=== PATIENT | male | born 1950 | race Caucasian/White ===

== ENCOUNTER 2019-05-16 13:40 | Emergency (ER) | payer MEDICARE, BC, OTHER, SELFPAY ==
--- NOTE | ~2019-05-16 | XR_ITS ---
EXAMINATION: XR chest 2V DATE: 05/16/2019 14:21 INDICATION: Shortness of breath TECHNIQUE: PA and lateral views of the chest are obtained. COMPARISON: 01/19/2019 FINDINGS: The lungs are free of acute opacities. There is no pleural effusion or pneumothorax. Cardio megaly is noted. A dual-lead cardiac pacemaker of the left chest wall ends with leads in expected loc ations. There is mild thoracic spondylosis. IMPRESSION: 1. Cardiomegaly. Reviewed, dictated and finalized at location A. DBOAT DRIVER IMPRESSION: 1. Cardiomegaly.
--- NOTE | 2019-05-16 13:53 | ED.GENADULT ---
HPI - General Adult General Chief complaint: Upper Respiratory Infection Stated complaint: fatigue/chills/fever Time Seen by Provider: 05/16/19 14:04 Source: patient Mode of arrival: ambulatory Limitations: no limitations History of Present Illness HPI narrative: 69-year-old male patient presents to the [facility] with complaints of cold symptoms for the past 5 days. Patient states that he did get a flu shot this year. Patient states he is just been feeling overall tired, drained, fatigue, body aches and has had fevers. Patient states he does have a history of CHF and normally does have shortness of breath but states that his shortness of breath is gotten worse over the past couple of days. Patient denies any cough at this time. Patient states he has been taking [id number] Ashely-Kennedy cold and flu Related Data Home Medications Medication Instructions Recorded Confirmed atorvastatin 05/16/19 carvedilol 05/16/19 clopidogrel 05/16/19 furosemide 05/16/19 insulin aspart U-100 [Novolog 05/16/19 U-100 Insulin aspart] levothyroxine [Synthroid] 05/16/19 metolazone 05/16/19 potassium chloride meq PO 05/16/19 rivaroxaban [Xarelto] mg 05/16/19 sacubitril-valsartan [Entresto] 05/16/19 Allergies Allergy/AdvReac Type Severity Reaction Status Date / Time Penicillins Allergy Unknown Verified 05/16/19 14:00 Sulfa (Sulfonamide Allergy Unknown Verified 05/16/19 14:00 Antibiotics) sulfanilamide Allergy Unknown Verified 05/16/19 14:00 Review of Systems Review of Systems: Narrative: CONSTITUTIONAL: Positive fever, chills, body aches and sweats. EYES: Denies visual changes, redness, or discharge. ENT: Denies rhinorrhea, congestion, sore throat, or otalgia. CARDIOVASCULAR: Denies chest pain, palpitations, or edema. RESPIRATORY: Denies cough positive dyspnea. GASTROINTESTINAL: Denies abdominal pain, nausea, vomiting, or diarrhea. GENITOURINARY: Denies dysuria or hematuria. SKIN: Denies rash or itching. MUSCULOSKELETAL: Denies back pain, joint pain, or myalgia. NEUROLOGIC: Denies headache, numbness, or weakness. PSYCHIATRIC: Denies anxiety or depression. [facility] Past Medical History Medical History (Updated 05/16/19 @ 14:34 by BLAKE Pascual) Atrial fibrillation Barretts esophagus Cancer Basal cell left ear Carpal tunnel syndrome Congestive heart failure Last EF 35% August 2017 Diabetes GERD (gastroesophageal reflux disease) Heart murmur Hypercholesterolemia Hypertension Hypothyroidism Insulin pump in place Kidney stones Legionnaires' disease Musculoskeletal disorder Arthritis, left shoulder torn rotator cuff Myocardial infarction 2019 Obesity Pacemaker Peripheral neuropathy Pneumonia Sleep apnea Surgical History Surgical History (Updated 05/16/19 @ 14:09 by BLAKE Pascual) H/O cardiac catheterization History of appendectomy History of coronary artery stent placement Family History Family History Mother Depression Family history of arthritis Sibling Depression Family history of arthritis Family history of diabetes mellitus in first degree relative Family history of congestive heart failure Family history of heart disease in male family member before age 55 Father Family history of diabetes mellitus in first degree relative Social History Social History Smoking status: Never smoker Alcohol intake: current Comments At the time of my signature I agree with nursing past medical history, surgical, social, and family history. There is no relevant family history pertinent to the presenting complaint. Exam Narrative: Exam Narrative: GENERAL: Well-appearing, well-nourished, and in no acute distress. HEAD: Normocephalic, atraumatic. No tenderness noted to frontal or maxillary sinuses on palpation. EYES: PERRLA and EOMI. ENT: Nares with erythema
[2019-05-16 13:55] VITALS: BP 109/61; PULSE 70; RESP 18; TEMP 37.7; O2SAT 97
[2019-05-16] MEDS: IPRATROPIUM BR 0.02% INH SOLN 0.5 MG/2.5 ML VIAL INHALATION (14:26)
[2019-05-16] MEDS: ALBUTEROL SULFATE NEB 2.5 MG/3 ML INH INHALATION (14:26)
[2019-05-16 14:35] VITALS: PULSE 69; O2SAT 98
[2019-05-16 14:55] VITALS: PULSE 69; RESP 18; O2SAT 98
== END 2019-05-16 14:55 | disposition home or self-care (01) ==
PROVIDERS: Emergency Provider Nurse Practitioner Family
DX: J10.1 Influenza due to other identified influenza virus with other respiratory manifestations (principal); I48.91 Unspecified atrial fibrillation; K22.70 Barrett's esophagus without dysplasia; Z85.828 Personal history of other malignant neoplasm of skin; E11.42 Type 2 diabetes mellitus with diabetic polyneuropathy; I11.0 Hypertensive heart disease with heart failure; I50.9 Heart failure, unspecified; K21.9 Gastro-esophageal reflux disease without esophagitis; R01.1 Cardiac murmur, unspecified; E78.00 Pure hypercholesterolemia, unspecified; A48.1 Legionnaires' disease; I25.2 Old myocardial infarction; Z95.0 Presence of cardiac pacemaker; G47.30 Sleep apnea, unspecified; M19.012 Primary osteoarthritis, left shoulder; Z96.41 Presence of insulin pump (external) (internal); Z95.5 Presence of coronary angioplasty implant and graft; Z79.4 Long term (current) use of insulin; Z79.01 Long term (current) use of anticoagulants
CPT/HCPCS: 71046; 87804; 94640; 99213; G0463

== ENCOUNTER 2019-06-08 10:05 | Outpatient (RCR) | payer SELFPAY | END 2020-01-06 14:25 | disposition home or self-care (01) | LOC: ANHCPRIII 10:05 | PROVIDERS: Visit Provider Internal Medicine Cardiovascular Disease | DX: I25.2 Old myocardial infarction (principal); Z95.5 Presence of coronary angioplasty implant and graft | CPT/HCPCS: 99199 ==

== ENCOUNTER 2020-01-26 10:53 | Outpatient (CLI) | payer MEDICARE, BC, OTHER, SELFPAY ==
--- NOTE | ~2020-01-26 | US_ITS ---
EXAMINATION: US venous doppler [facility] DATE: 01/26/2020 11:45 INDICATION: Left lower limb pain, swelling and palpable lump TECHNIQUE: Grayscale ultrasound images without and with compression and Doppler ultrasound images of the left lower extremity veins were obtained. COMPARISON: None. FINDINGS: The visualized portions of left common femoral vein, profunda (deep) femoral vein, femoral vein, popl iteal vein, peroneal veins, posterior tibial veins, gastrocnemius vein and greater saphenous vein out flow are patent. The patent compressible greater saphenous vein is seen extending across the region o f the palpable abnormality with no other abnormal masses or fluid collections seen at the region of c oncern. IMPRESSION: 1. No deep venous thrombosis in the left lower limb. Reviewed, dictated and finalized at location B.
== END 2020-01-26 10:54 | disposition home or self-care (01) ==
PROVIDERS: Visit Provider Internal Medicine Cardiovascular Disease
DX: M79.605 Pain in left leg (principal)
CPT/HCPCS: 93971

== ENCOUNTER 2020-04-04 11:27 | Emergency (ER) | payer MEDICARE, BC, OTHER, SELFPAY ==
--- NOTE | 2020-04-04 11:37 | ED.SKABFB ---
HPI - Skin/Abscess/Foreign Bdy General Chief complaint: Skin/Abscess/Foreign Body Stated complaint: rash Time Seen by Provider: 04/04/20 11:37 Source: patient and RN notes reviewed History of Present Illness HPI narrative: Patient is a 70-year-old male who presents the urgent care with complaints of rash to the top of the left foot. Patient states that he noticed it approximately a day and a half ago and he has not done anything for the rash. Patient denies of any new creams, detergents, lotions. States that he does have bilateral edema due to CHF however he has noticed that the left foot has been increase in swelling over the last day. Patient denies of any known injury, trauma, fall. Denies of any new or increased shortness of breath. Denies of any chest pain. Patient denies of any history of DVT however does have a history of A. fib and an NE. Patient is currently taking his Plavix as prescribed. Patient also has a history of cellulitis. Denies of any recent fever, chills, nausea, vomiting. No other acute complaints. No acute distress noted. Patient aware of the plan of care. Some parts of this dictation were generated by voice recognition software and may contain typographical and/or grammatical inaccuracies. Related Data Home Medications Medication Instructions Recorded Confirmed atorvastatin 80 mg DAILY 05/16/19 04/04/20 carvedilol 25 mg DAILY 05/16/19 04/04/20 clopidogrel 75 mg DAILY 05/16/19 04/04/20 furosemide 60 mg DAILY 05/16/19 04/04/20 insulin aspart U-100 [Novolog 05/16/19 U-100 Insulin aspart] levothyroxine [Synthroid] 150 mcg DAILY 05/16/19 04/04/20 metolazone 5 mg DAILY 05/16/19 04/04/20 potassium chloride 20 meq PO DAILY 05/16/19 04/04/20 sacubitril-valsartan [Entresto] 49 - 51 tablet DAILY 05/16/19 04/04/20 Allergies Allergy/AdvReac Type Severity Reaction Status Date / Time Penicillins Allergy Unknown Verified 05/16/19 14:00 Sulfa (Sulfonamide Allergy Unknown Verified 05/16/19 14:00 Antibiotics) sulfanilamide Allergy Unknown Verified 05/16/19 14:00 Review of Systems Review of Systems: Narrative: CONSTITUTIONAL: Denies fever, chills, or sweats. EYES: Denies visual changes, redness, or discharge. ENT: Denies rhinorrhea, congestion, sore throat, or otalgia. CARDIOVASCULAR: Denies chest pain, palpitations, or edema. RESPIRATORY: Denies cough or dyspnea. GASTROINTESTINAL: Denies abdominal pain, nausea, vomiting, or diarrhea. GENITOURINARY: Denies dysuria or hematuria. SKIN: Reports of a tender rash to the top of the left foot MUSCULOSKELETAL: Denies back pain, joint pain, or myalgia. NEUROLOGIC: Denies headache, numbness, or weakness. All other systems reviewed are negative, except as documented in HPI. [facility] Past Medical History Medical History (Updated 04/04/20 @ 11:50 by BLAKE Alejo) Atrial fibrillation Barretts esophagus Cancer Basal cell left ear Carpal tunnel syndrome Congestive heart failure Last EF 35% August 2017 Diabetes GERD (gastroesophageal reflux disease) Heart murmur Hypercholesterolemia Hypertension Hypothyroidism Insulin pump in place Kidney stones Legionnaires' disease Musculoskeletal disorder Arthritis, left shoulder torn rotator cuff Myocardial infarction 2019 Obesity Pacemaker Peripheral neuropathy Pneumonia Sleep apnea Surgical History Surgical History (Updated 05/16/19 @ 14:09 by BLAKE Psacual) H/O cardiac catheterization History of appendectomy History of coronary artery stent placement Family History Family History Mother Depression Family history of arthritis Sibling Depression Family history of arthritis Family history of diabetes mellitus in first degree relative Family history of congestive heart failure Family history of heart disease in male family member before age 55 Father Family history of diabetes mellitus in first degree relative Social H
[2020-04-04 11:42] VITALS: BP 132/72; PULSE 70; RESP 20; TEMP 37; O2SAT 99
== END 2020-04-04 11:55 | disposition home or self-care (01) ==
PROVIDERS: Emergency Provider Nurse Practitioner Family
DX: L03.116 Cellulitis of left lower limb (principal); I25.10 Atherosclerotic heart disease of native coronary artery without angina pectoris; G47.30 Sleep apnea, unspecified; I48.91 Unspecified atrial fibrillation; K22.70 Barrett's esophagus without dysplasia; Z85.828 Personal history of other malignant neoplasm of skin; E11.42 Type 2 diabetes mellitus with diabetic polyneuropathy; I11.0 Hypertensive heart disease with heart failure; I50.9 Heart failure, unspecified; K21.9 Gastro-esophageal reflux disease without esophagitis; E78.00 Pure hypercholesterolemia, unspecified; A48.1 Legionnaires' disease; I25.2 Old myocardial infarction; Z95.0 Presence of cardiac pacemaker; E66.9 Obesity, unspecified; Z68.38 Body mass index [BMI] 38.0-38.9, adult; Z96.41 Presence of insulin pump (external) (internal); M19.012 Primary osteoarthritis, left shoulder; Z95.5 Presence of coronary angioplasty implant and graft; Z79.01 Long term (current) use of anticoagulants
CPT/HCPCS: 99213; G0463

== ENCOUNTER 2020-04-23 18:10 | Inpatient (IN) | payer MEDICARE, BC, OTHER, SELFPAY ==
[2020-04-23] VITALS (25 sets, daily range): BP systolic 108–149; BP diastolic 57–97; PULSE 70–73; RESP 15–32; TEMP 37.6–37.7; O2SAT 93–100
--- NOTE | ~2020-04-23 | US_ITS ---
EXAMINATION: US renal BI EXAM DATE: 04/28/2020 10:37 INDICATION: Acute kidney insufficiency. TECHNIQUE: Multiple grayscale and Doppler images of the kidneys were obtained (by a technologist who performed the scan) and subsequently reviewed. Comparison is made to prior examination from 05/27/2016 . FINDINGS: There are small bilateral renal cortical thinning. Right kidney: There is normal contour and echogenicity. It measures 11.5 x 5.6 x 5.6 centimeters. Th ere is a 1.8 cm cyst in the lower pole. Another lower pole exophytic cyst measuring 2.0 cm. There i s no hydronephrosis. Left kidney: There is normal contour and echogenicity. It measures 11.7 x 5.7 x 6.9 centimeters. Th ere are no focal renal lesions identified. There is no hydronephrosis. Bladder unremarkable. IMPRESSION: 1. Mild bilateral renal cortical thinning. 2. Right renal cyst. 3. No hydronephrosis. Reviewed, dictated and finalized at location A. BASE SECURITY EXPERT
--- NOTE | ~2020-04-23 | XR_ITS ---
XR chest 1V portable DATE: 04/28/2020 17:06 INDICATION: Hypoxia. Covid. TECHNIQUE: Portable upright AP chest on 04/28/2020 at 1706 hours COMPARISON: 04/23/2020 portable upright AP chest FINDINGS: Severe patchy bilateral pulmonary consolidating infiltrates are noted throughout both most of each lung, relatively sparing the left apex. Findings are consistent with extensive bilateral pneu monia or less likely pulmonary edema. No pleural effusion is evident. No pneumothorax. Borderline heart size. Left pacemaker device with leads overlying right atrium and right ventricle. [place] device is noted overlying the left humeral head. IMPRESSION: Prominent bilateral patchy consolidating infiltrates, severely increased since 04/23/2020 Reviewed, dictated and finalized at location A. NE OILER IMPRESSION: Prominent bilateral patchy consolidating infiltrates, severely incr eased since 04/23/2020
--- NOTE | ~2020-04-23 | XR_ITS ---
EXAMINATION: XR chest 1V portable EXAM DATE: 04/23/2020 19:19 INDICATION: Shortness of breath, nausea, chills for 5 days. History high blood pressure and diabetes. TECHNIQUE: Portable AP frontal chest x-ray was obtained. Comparison is made to prior examination from 05/16/2019. FINDINGS: There is a dual lead pacemaker/AICD seen with leads projecting over the expected locations of the right atrial appendage and right ventricle. There is mild cardiomegaly. There is pulmonary vas cular congestion. Indistinct reticulation, may indicate some developing groundglass opacity. No confl uent consolidation, pneumothorax or pleural effusion suspected. There are mild bony degenerative gabriele nges. IMPRESSION: Congestive changes. Possible developing infection and/or edema. Reviewed, dictated and finalized at location A. HOLDER
[2020-04-23 18:20] LABS: Glucose Point of Care 224 (65-105)
[2020-04-23 18:42] LABS: Basophils Percent Auto 0.3 % (0.2-1.2); Eosinophils Percent Auto 0.3 % (0-4.4); Hematocrit 33.4 % (42.0-52.0); Immature Granulocyte Absolute 0.02 K/mm3 (0.00-0.031); Immature Granulocyte Percent A 0.6 % (0-0.5); Lymphocytes Absolute Auto 0.36 K/mm3 (0.9-3.2); Lymphocytes Percent Auto 11.1 % (18.3-44.2); Mean Corpuscular HGB Conc 32.9 g/dl (32-36); Mean Corpuscular Hemoglobin 29.7 pg (26-34); Mean Corpuscular Volume 90.3 fl (80-100); Mean Platelet Volume 10.2 fl (7.4-10.4); Monocytes Absolute Auto 0.4 K/mm3 (0.1-0.6); Neutrophils Absolute Auto 2.5 K/mm3 (1.3-6.7); Neutrophils Percent Auto 75.7 % (45.5-73.1); Platelet Count Result 142 k/mm3 (150-375); Red Cell Distribution Width 14.8 % (11.5-14.5); White Blood Count 3.2 K/mm3 (4.5-10.0)
--- NOTE | 2020-04-23 18:50 | ECG_ITS ---
Measurements Intervals [place] Rate: 70 P: [place]: 0 QRS: 6 QRSD: 173 T: 99 QT: 472 QTc: 510 Interpretive Statements ELECTRONIC VENTRICULAR PACEMAKER BASELINE ARTIFACT- I, II, AVR, AVL NO FURTHER INTERPRETATION IS POSSIBLE ATYPICAL ECG Electronically Signed On 04-24-2020 7:11:43 DIRECTOR OF CUSTOMER SERVICE by Tyler Bahena D.O.
[2020-04-23 18:51] LABS: INR 1.3; Prothrombin Time 16.7 Seconds (11.1-14.7)
[2020-04-23 18:52] LABS: Lactic Acid Reflex 2.2 mmol/L (0.7-2.1); Partial Thromboplastin Time 36.9 SECONDS (22.3-36.8)
[2020-04-23 18:56] LABS: Alanine Aminotransferase 22 U/L (4-50); Albumin Level 4.3 g/dL (3.5-5.1); Alkaline Phosphatase 63 U/L (38-126); Anion Gap 11 mmol/L (8-16); Aspartate Amino Transferase 37 U/L (17-59); Bilirubin,Total 0.8 mg/dL (0.2-1.3); Blood Urea Nitrogen 52 mg/dL (9-20); Calcium 8.9 mg/dL (8.4-10.2); Carbon Dioxide 27 mmol/L (22-30); Chloride 98 mmol/L (98-107); Estimated CRCL calculation 36 ml/min; Estimated Glomerular Filt Rate 30; Glucose 238 mg/dL (75-110); Lipase 104 U/L (23-300); Magnesium 1.4 mg/dL (1.6-2.3); Phosphorus 3.4 mg/dL (2.5-4.5); Potassium 3.9 mmol/L (3.4-5.0); Sodium 136 mmol/L (137-145)
[2020-04-23 19:01] LABS: Alveolar/Arterial O2 Gradient 52.3 mmHg; Base Excess ABG -0.7 mEq/l (+/-2.0); Fractional Inspired Oxygen 21 %; HCO3 ABG 22.2 mEq/l (22.0-26.0); Oxygen Content ABG 13.4 %vol (16.0-22.0); Oxygen Saturation ABG 93.2 % (95.0-100.0); Oxyhemoglobin 89.8 % THb (90.0-100.0); PCO2 ABG 30.6 mmHg (35.0-45.0); PO2 ABG 60.8 mmHg (80.0-100.0); Total Hemoglobin 10.6 g/dL (12.0-18.0); pH ABG 7.479 (7.350-7.450)
[2020-04-23 19:02] LABS: Device ROOM AIR; Modified Allen's Test Pass; Site Drawn LEFT RADIAL
--- NOTE | 2020-04-23 19:08 | ED.FEVER ---
HPI - Fever General Chief Complaint: Fever Stated Complaint: Fever, weakness x 5 days Time Seen by Provider: 04/23/20 18:30 Source: patient Limitations: no limitations History of Present Illness HPI Narrative: 70 years old white male presents with fever, generalized weakness and shortness of breath with coughing started 5 days ago. Patient daughter tested positive for COVID-19 few days prior to that day. History of atrial fibrillation, Dela Cruz's esophagitis, congestive heart failure with ejection fraction of 35%, diabetes, hypertension, hyperlipidemia, coronary artery disease and sleep apnea. Related Data Home Medications Medication Instructions Recorded Confirmed atorvastatin 80 mg DAILY 05/16/19 04/04/20 carvedilol 25 mg DAILY 05/16/19 04/04/20 clopidogrel 75 mg DAILY 05/16/19 04/04/20 furosemide 60 mg DAILY 05/16/19 04/04/20 insulin aspart U-100 [Novolog 05/16/19 U-100 Insulin aspart] levothyroxine [Synthroid] 150 mcg DAILY 05/16/19 04/04/20 metolazone 5 mg DAILY 05/16/19 04/04/20 potassium chloride 20 meq PO DAILY 05/16/19 04/04/20 sacubitril-valsartan [Entresto] 49 - 51 tablet DAILY 05/16/19 04/04/20 Allergies Allergy/AdvReac Type Severity Reaction Status Date / Time Penicillins Allergy Unknown Hives Verified 04/23/20 18:21 Sulfa (Sulfonamide Allergy Unknown Hives Verified 04/23/20 18:21 Antibiotics) sulfanilamide Allergy Unknown Hives Verified 04/23/20 18:21 Review of Systems Review of Systems: Narrative: CONSTITUTIONAL: Denies fever, chills, or sweats. EYES: Denies visual changes, redness, or discharge. ENT: Denies rhinorrhea, congestion, sore throat, or otalgia. CARDIOVASCULAR: Denies chest pain, palpitations, or edema. RESPIRATORY: Cough with shortness of breath GASTROINTESTINAL: Denies abdominal pain, nausea, vomiting, or diarrhea. GENITOURINARY: Denies dysuria or hematuria. SKIN: Denies rash or itching. MUSCULOSKELETAL: Denies back pain, joint pain, or myalgia. NEUROLOGIC: Denies headache, numbness, or weakness. PSYCHIATRIC: Denies anxiety or depression. [facility] Past Medical History Medical History Atrial fibrillation Barretts esophagus Cancer Basal cell left ear Carpal tunnel syndrome Congestive heart failure Last EF 35% August 2017 Diabetes GERD (gastroesophageal reflux disease) Heart murmur Hypercholesterolemia Hypertension Hypothyroidism Insulin pump in place Kidney stones Legionnaires' disease Musculoskeletal disorder Arthritis, left shoulder torn rotator cuff Myocardial infarction 2019 Obesity Pacemaker Peripheral neuropathy Pneumonia Sleep apnea Surgical History Surgical History H/O cardiac catheterization History of appendectomy History of coronary artery stent placement Family History Family History Mother Depression Family history of arthritis Sibling Depression Family history of arthritis Family history of diabetes mellitus in first degree relative Family history of congestive heart failure Family history of heart disease in male family member before age 55 Father Family history of diabetes mellitus in first degree relative Social History Social History Smoking status: Never smoker Alcohol intake: current Gender identity (if verbalized by the patient): Male Exam Narrative: Exam Narrative: General appearance: Well-developed, well-nourished, obese Skin: Normal color Head: Normocephalic, nontraumatic Eyes: Clear conjunctiva ENT: Oropharynx normal, ears normal, nose normal Neck: Supple, nontender Chest and respiratory: Airway patent, slight labored breathing, no accessory muscle use, diminution of air entry bilaterally with few rales Heart: Regular rate/rhythm Abdomen: Soft, nontender, no organomegaly, quiet bowel sounds Vascular: Normal kriss
[2020-04-23 21:39] LABS: Reflex Lactic Acid Yes or No Add Lactic
--- NOTE | 2020-04-23 23:10 | PC.NURSE ---
This patient, Addy Fox, was admitted to [facility] Surg Room 330-01. Patient/family oriented to hospital policies and general routines including ID bracelet, bed and alarms, visiting hours, pain management, procedures, bathroom and other care routines, personal items, smoking policy, room service/diet, and visiting hours. Information on how to activate the Rapid Response Team has been discussed. Patient/Family are encouraged to report perceived risks to care and to ask questions if they do not understand what they are told or what they should do.
[2020-04-23] MEDS: SODIUM CHLORIDE 0.9% IV 1,000 ML 100 ML IV CONT (23:43)
[2020-04-24] VITALS (9 sets, daily range): BP systolic 112–119; BP diastolic 50–59; PULSE 67–79; RESP 16–28; TEMP 36.7–37.8; O2SAT 92–99
--- NOTE | 2020-04-24 04:59 | ECG_ITS ---
Measurements Intervals [place] Rate: 70 P: [place]: 0 QRS: -78 QRSD: 185 T: 88 QT: 460 QTc: 497 Interpretive Statements ELECTRONIC VENTRICULAR PACEMAKER BASELINE ARTIFACT- I, II, III, AVF, V1-V2 NO FURTHER INTERPRETATION IS POSSIBLE ATYPICAL ECG Electronically Signed On 04-24-2020 7:14:46 TYPE INSPECTOR by Tyler Bahena D.O.
[2020-04-24 05:31] LABS: Hematocrit 32.7 % (42.0-52.0); Hemoglobin 10.9 g/dL (14.0-18.0); Mean Corpuscular HGB Conc 33.3 g/dl (32-36); Mean Corpuscular Hemoglobin 29.5 pg (26-34); Mean Corpuscular Volume 88.6 fl (80-100); Mean Platelet Volume 10.1 fl (7.4-10.4); Platelet Count Result 131 k/mm3 (150-375); Red Blood Count 3.69 M/mm3 (4.6-6.20)
[2020-04-24 05:44] LABS: Alanine Aminotransferase 21 U/L (4-50)
[2020-04-24 05:45] LABS: Lactic Acid Reflex 1.3 mmol/L (0.7-2.1)
[2020-04-24 05:47] LABS: Anion Gap 9 mmol/L (8-16); Blood Urea Nitrogen 51 mg/dL (9-20); CRP 4.8 mg/dL (<1.0); Calcium 8.6 mg/dL (8.4-10.2); Carbon Dioxide 27 mmol/L (22-30); Chloride 99 mmol/L (98-107); Estimated CRCL calculation 36 ml/min; Estimated Glomerular Filt Rate 30; Glucose 113 mg/dL (75-110); Lactate Dehydrogenase 850 U/L (313-618); Potassium 3.7 mmol/L (3.4-5.0); Sodium 135 mmol/L (137-145)
[2020-04-24 05:58] LABS: Troponin I 0.156 ng/mL (0.000-0.034)
[2020-04-24] MEDS: MAGNESIUM SULF 2 GM/WATER 50ML 2 GM/50 ML BAG IVPB (06:36)
--- NOTE | 2020-04-24 07:13 | PM.IMHP ---
H&P: HPI History of Present Illness Date/Time: 04/24/20 06:00 Chief Complaint: Fever, weakness, shortness of breath, exposed to COVID Narrative: Addy Fox is a 70 year old male with a past medical history of obstructive sleep apnea, CHF, coronary artery disease, diabetes mellitus and chronic kidney disease stage 3 who presented to the ER from home for fever, weakness and shortness of breath. The patient that his daughter tested positive for COVID last week. He has been feeling ill for 5 days. He has been having sharp stabbing headache in the left side of his head that occurs when he coughs. His cough is productive of creamy sputum. Is so sedated with fever with T-max of 101.9?. He has not had any change in his sense of taste or smell. He has had significant decrease in his appetite. He has had some nausea but no vomiting. He denies any chest pain or significant orthopnea. He reports that he has chronic lower extremity swelling. His left lower extremity is always more swollen than his right. His legs have not been painful or erythematous. He has not noticed a change in the swelling. He has been compliant with his Xarelto. He reports that his glucoses are frequently high in the morning depending on what he has eaten. His glucoses are usually around 200 fasting. He sees both primary care and 3rd grade reading teacher through the [place]. Review of Systems Review of Systems: Narrative: 12 systems were reviewed with pertinent positives and negatives per HPI. Except as documented in the HPI, all other systems were reviewed and are negative. [facility] Past Medical History Medical History (Updated 04/24/20 @ 08:05 by Cece Cortes DO) Atrial fibrillation Barretts esophagus Basal cell carcinoma (BCC) of antihelix of left ear Status post resection Cancer Basal cell left ear Chronic kidney disease, stage III (moderate) Congestive heart failure Echocardiogram September 2017: Mild concentric LVH, mild left ventricular enlargement, moderate global left ventricular systolic dysfunction with EF of 35%, akinetic apical segment mid inferior segment and apical inferior segment, dyskinetic apical septum segment and anterior septum segment, severe left atrial enlargement, mild right atrial enlargement, aortic valve stenosis with valve area of 2.1 centimeters squared severity of stenosis may be underestimated due to low cardiac output, moderate pulmonary hypertension with RVSP of 55 Coronary artery disease With chronic troponin elevation Diabetes GERD (gastroesophageal reflux disease) Heart murmur Hypercholesterolemia Hypertension Hypothyroidism Insulin pump in place Ischemic cardiomyopathy Kidney stones Legionnaires' disease Found on lung biopsy Musculoskeletal disorder Arthritis, left shoulder torn rotator cuff Myocardial infarction 2018 Obesity Pacemaker Peripheral neuropathy Sleep apnea CPAP of 9 polysomnogram 2013 Vitamin D deficiency Surgical History Surgical History (Updated 04/24/20 @ 07:50 by Cece Cortes DO) H/O cardiac catheterization December 2013-distal LAD stenosis too small for intervention, tiny small ramus intermedius branch mid to distally occluded, no disease that could be intervened upon Catheterization in August 2017 with 1 drug-eluting stent placed in the proximal LAD. This occurred in [facility] while he was visiting family. History of appendectomy History of bilateral carpal tunnel release History of coronary artery stent placement Status post biventricular pacemaker Due to sick sinus syndrome and atrial fibrillation Family History Family History (Updated 04/24/20 @ 07:50 by Cece Cortes DO) Mother Depression Sibling Depression CHF (congestive heart failure) Acute myocardial infarction Diabetes mellitus, Onset Age: 50 Father Diabetes mellitus Social History Social History (Updated 04/24/20 @ 07:52 by Cece Cortes DO) Social History: He lives at home with his 2 daughters. 1 of
[2020-04-24 08:42] LABS: Troponin I 0.143 ng/mL (0.000-0.034)
[2020-04-24] MEDS: POTASSIUM CHLORIDE 20 MEQ TABLET.ER PO (09:01)
[2020-04-24] MEDS: ATORVASTATIN 40 MG TABLET 80 MG PO (09:01)
[2020-04-24] MEDS: CLOPIDOGREL BISULFATE 75 MG TABLET PO (09:01)
[2020-04-24] MEDS: LEVOTHYROXINE SODIUM 150 MCG TABLET PO (09:01)
[2020-04-24] MEDS: SACUBITRIL/VALSARTAN 49-51 MG TABLET 1 TABLET PO ×2 (09:02→17:08)
[2020-04-24] MEDS: FUROSEMIDE 20 MG TABLET 60 MG PO (09:02)
[2020-04-24] MEDS: LEVALBUTEROL HFA (*SP) 15 GM INHALER 4 PUFF INHALATION ×4 (09:03→21:07)
[2020-04-24 09:54] LABS: Glucose Point of Care 123 (65-105)
[2020-04-24 11:48] LABS: Troponin I 0.161 ng/mL (0.000-0.034)
[2020-04-24 13:32] LABS: Glucose Point of Care 194 (65-105)
--- NOTE | 2020-04-24 14:17 | PM.IMPN ---
Progress Note: A&P Assessment and Plan (1) Elevated troponin: Code(s): R77.8 - Other specified abnormalities of plasma proteins Status: Acute Assessment and Plan: Patient's troponin was elevated on arrival. Could be secondary to possible COVID but due to his cardiac history and systolic CHF, I will consult cardiology for further evaluation and monitoring. Echocardiogram will be ordered He will be continued on telemetry EKGs are hard to interpret due to chronic widened QTC as well as paced rhythm. He denies any chest pain at this time but is having dyspnea with exertion and shortness of breath at rest, but the patient has not been hypoxic. Some concern for an underlying cardiac cause to his dyspnea. Troponins were elevated but flat. Appreciate cardiology's input for further monitoring. Continue monitoring. (2) Pneumonia: Qualifiers: Laterality: bilateral Lung location: unspecified part of lung Pneumonia type: due to unspecified organism Qualified Code(s): J18.9 - Pneumonia, unspecified organism Code(s): J18.9 - Pneumonia, unspecified organism Status: Acute Assessment and Plan: Most likely due to COVID-19 pneumonia. Patient has had close personal exposure to his daughter who lives in the same home with him. He has been started on Decadron due to tachypnea, but we have not recorded any hypoxia episodes yet. Will place on Continuous Pulse Ox for further monitoring. Continue Xopenex inhalers. Continue IS and Cornet Continue Tylenol as needed for fevers and muscle aches and pains. No antibiotics started at this time for pneumonia due to high suspicion of COVID-19. COVID test is still pending at this time. Continue monitoring. Patient is on isolation. Monitor respiratory status. (3) Close exposure to COVID-19 virus: Code(s): Z20.822 - Contact with and (suspected) exposure to COVID-19 Status: Acute (4) Chronic kidney disease, stage III (moderate): Qualifiers: Chronic kidney disease stage 3 subtype: stage 3b (GFR 30-44) Qualified Code(s): N18.32 - Chronic kidney disease, stage 3b Code(s): N18.30 - Chronic kidney disease, stage 3 unspecified Status: Acute Assessment and Plan: The patient has chronic kidney disease. The last labs we have available were from 2018. His creatinine is slightly above value from 2018 but this is likely progression of his chronic kidney disease and not acute change. Creatinine is 2.2. Stable. Continue monitoring. (5) Type 2 diabetes mellitus with hyperglycemia: Qualifiers: Diabetes mellitus meterman insulin use: with meterman use Qualified Code(s): E11.65 - Type 2 diabetes mellitus with hyperglycemia; Z79.4 - shelter (current) use of insulin Code(s): E11.65 - Type 2 diabetes mellitus with hyperglycemia Status: Acute Assessment and Plan: The patient has chronically uncontrolled diabetes. He has insulin pump in place. He has not [facility] He reports that his fasting glucoses are often in the 200s. He has complications including diabetic retinopathy, nephropathy and neuropathy. His glucose this morning was 113 but it is likely due to his decreased oral intake. The patient has signed an insulin pump agreement and is proficient in managing his pump. Will continue the patient's insulin pump which runs at 3 units between midnight and 5:30 a.m. 4 units between 5:30 a.m. and 10:00 p.m. and 4.25 units between 10:00 p.m. and midnight. He uses 1 unit of insulin for every 2 carbs in his insulin to carb ratio. He takes 1 unit for every 10 mg/dL of glucose over 150 Check HgbA1c. Continue monitoring ACHS. Hypoglycemic protocol in place. Make adjustements if necessary. SSI.
--- NOTE | 2020-04-24 14:37 | ECG_ITS ---
Measurements Intervals [place] Rate: 70 P: NV: 0 QRS: -83 QRSD: 176 T: 93 QT: 455 QTc: 492 Interpretive Statements ELECTRONIC VENTRICULAR PACEMAKER NO FURTHER INTERPRETATION IS POSSIBLE ATYPICAL ECG Electronically Signed On 04-24-2020 16:29:44 [employer] by Tyler Bahena D.O.
[2020-04-24] MEDS: DEXAMETHASONE 2 MG TABLET 6 MG PO (15:11)
[2020-04-24] MEDS: RIVAROXABAN 15 MG TABLET PO (17:08)
[2020-04-24 18:27] LABS: SARS-CoV-2 RNA PCR Positive
[2020-04-24 21:00] LABS: Glucose Point of Care 135 (65-105)
[2020-04-24] MEDS: carvediloL 12.5 MG TABLET PO (21:06)
[2020-04-24] MEDS: SALINE 0.65% NAS SOLN 44 ML BTL 1 SPRAY NASAL (21:08)
[2020-04-24 21:30] LABS: Glucose Point of Care 160 (65-105)
--- NOTE | 2020-04-24 21:49 | PHAR ---
HOME MED VERIFIED = TRULICITY1.5MG/0.5ML PREFILLED SYRINGE. NO RX LABEL SO NO PRESCRIBING INFORMATION TO CHECK AGAINST.
[2020-04-25] VITALS (8 sets, daily range): BP systolic 101–116; BP diastolic 50–68; PULSE 70–92; RESP 20–24; TEMP 36.2–36.8; O2SAT 92–100
--- NOTE | 2020-04-25 | ECHO_ITS ---
Patient Info Name: Addy Fox Age: 70 years : 1950 Gender: Male Ht: 68 in Wt: 255 lbs BSA: 2.41 m2 HR: 70 bpm BP: 116 / 68 mmHg Technical Quality: Good Exam Date: 04/25/2020 9:55 AM Exam Location: [facility] Patient Status: Inpatient Admit Date: 04/23/2020 Staff Ordering Physician: Deborah Zuleta PA-C City Manager: Carlos Muniz RDCS, RT Attending Provider: Len Jolly PA-C Referring Physician: Merlyn COVINGTON; Exam Type: CA echo doppler color flow Study Info Indications R06.00 - Dyspnea, unspecified Complete two-dimensional, color flow and Doppler transthoracic echocardiogram is performed. Summary 1. Complete two-dimensional, color flow and Doppler transthoracic echocardiogram is performed. 2. Suboptimal image quality. Mild LVH, mild LV enlargement. Severe global LV systolic dysfunction with segmental wall motion abnormality. All myocardial segments are not well-visualized. Anteroseptum appears akinetic. Ejection fraction visually estimated at about 25-30%. Grade 3/4 diastolic dysfunction with elevated left heart pressures. Mild left enlargement. Pacemaker/ICD leads in the RA/RV. Mild MAC, [id number] MR. Aortic valve appears calcific and with restricted leaflet mobility, partly due to poor LV systolic function; V max 1.8 m/sec, mean gradient 7 mmHg, aortic valve area 1.1 cm2. Mild tricuspid regurgitation, mild pulmonary hypertension, RVSP 44 mmHg. Left Ventricle Left ventricular chamber dimension is mildly enlarged. Left ventricular systolic function is severely reduced, estimated at 25-30%. There is mildly increased left ventricular wall thickness. The left ventricular diastolic function is grade III diastolic dysfunction. E/e' 16.8 is abnormal. Right Ventricle Right ventricular chamber dimension is not well visualized. Left Atria Left atrial chamber dimension is mildly enlarged. Right Atria Right atrial chamber dimension is not well visualized. Aortic Valve There is moderate aortic valve stenosis with a peak velocity of 180 cm/s, mean gradient of 7 mmHg, and aortic valve area of 1.1 cm2. There is mild aortic valve calcification. Pulmonic Valve The pulmonic valve is normal. Mitral Valve There is mild to moderate mitral valve regurgitation. The mitral valve annulus is mildly calcified. Tricuspid Valve The tricuspid valve leaflets are normal. There is mild tricuspid valve regurgitation. Mild pulmonary hypertension, estimated pulmonary arterial systolic pressure is 44 mmHg. Pericardium/Pleural The pericardium appears normal. Aorta The aortic root size at the sinus of Valsalva is normal. Left Ventricular Outflow Tract Name Value Normal LVOT 2D LVOT Diameter 2.0 cm LVOT Doppler LVOT Peak Gradient 2 mmHg LVOT Mean Gradient 1 mmHg LVOT VTI 13 cm LVOT VTI/AV VTI Ratio 0.3 LVOT Stroke Volume 41 ml LVOT CO 2.9 l/min LVOT CI 1.2 l/min/m2 Mitr
[2020-04-25] MEDS: LEVOTHYROXINE SODIUM 150 MCG TABLET PO (05:50)
[2020-04-25 06:07] LABS: Hematocrit 27.5 % (42.0-52.0); Hemoglobin 9.2 g/dL (14.0-18.0); Mean Corpuscular HGB Conc 33.5 g/dl (32-36); Mean Corpuscular Hemoglobin 29.8 pg (26-34); Mean Platelet Volume 10.2 fl (7.4-10.4); Platelet Count Result 105 k/mm3 (150-375); Red Blood Count 3.09 M/mm3 (4.6-6.20); Red Cell Distribution Width 15.2 % (11.5-14.5); White Blood Count 2.8 K/mm3 (4.5-10.0)
[2020-04-25 06:20] LABS: Hemoglobin A1C 8.6 % (<5.7)
[2020-04-25 06:33] LABS: Alanine Aminotransferase 21 U/L (4-50); Albumin Level 3.5 g/dL (3.5-5.1); Alkaline Phosphatase 48 U/L (38-126); Anion Gap 11 mmol/L (8-16); Aspartate Amino Transferase 47 U/L (17-59); Bilirubin,Total 0.8 mg/dL (0.2-1.3); Blood Urea Nitrogen 66 mg/dL (9-20); CRP 6.6 mg/dL (<1.0); Calcium 7.8 mg/dL (8.4-10.2); Carbon Dioxide 24 mmol/L (22-30); Chloride 97 mmol/L (98-107); Estimated CRCL calculation 34 ml/min; Estimated Glomerular Filt Rate 28; Glucose 231 mg/dL (75-110); Lactate Dehydrogenase 1034 U/L (313-618); Magnesium 1.8 mg/dL (1.6-2.3); Potassium 4.1 mmol/L (3.4-5.0); Sodium 132 mmol/L (137-145)
[2020-04-25] MEDS: DEXAMETHASONE 2 MG TABLET 6 MG PO (08:18)
[2020-04-25] MEDS: SACUBITRIL/VALSARTAN 49-51 MG TABLET 1 TABLET PO ×2 (08:19→16:28)
[2020-04-25] MEDS: FUROSEMIDE 20 MG TABLET 60 MG PO (08:20)
[2020-04-25] MEDS: CLOPIDOGREL BISULFATE 75 MG TABLET PO (08:20)
[2020-04-25] MEDS: ATORVASTATIN 40 MG TABLET 80 MG PO (08:20)
[2020-04-25] MEDS: POTASSIUM CHLORIDE 20 MEQ TABLET.ER PO (08:21)
[2020-04-25] MEDS: LEVALBUTEROL HFA (*SP) 15 GM INHALER 4 PUFF INHALATION ×4 (08:21→20:37)
[2020-04-25 08:42] LABS: Glucose Point of Care 269 (65-105)
--- NOTE | 2020-04-25 11:22 | PM.CNCAR ---
Assessment and Plan Assessment and plan (1) Elevated troponin: Code(s): R77.8 - Other specified abnormalities of plasma proteins Status: Acute Assessment and Plan: 70-year-old male with coronary artery disease; history of ID status post PCI/stenting of LAD at outside hospital; ischemic cardiomyopathy/CHF with reduced ejection fraction, atrial fibrillation on chronic anticoagulation with lower dose rivaroxaban, CKD. Patient admitted with fever, dyspnea and and weakness. Found to have COVID-19 infection. Patient has minimal troponin elevation which is essentially flat, and is non ACS related in the setting of congestive heart failure, CKD and infection. Supportive care, continue current medical treatment for patient's CAD including Antiplatelets and statin. (2) Congestive heart failure: Code(s): I50.9 - Heart failure, unspecified Status: Acute Assessment and Plan: Continue home medications with carvedilol, sacubitril /valsartan. Diuresis with furosemide. Monitor renal function and electrolytes closely. Monitor volume status. Echocardiogram with Doppler is pending. (3) COVID-19: Code(s): U07.1 - COVID-19 Status: Acute Assessment and Plan: Management as per primary team. History of Present Illness History of Present Illness Consult date/time: 04/25/20 11:22 Date of consult: 04/25/2020 Reason for consult: Elevated troponin Requesting physician:CHANEL Zuleta Chief complaint: Shortness of breath HPI: 70-year-old male with coronary artery disease; history of ID status post PCI/stenting of LAD at outside hospital; ischemic cardiomyopathy/CHF with reduced ejection fraction, atrial fibrillation on chronic anticoagulation with lower dose rivaroxaban, CKD Patient was admitted to [facility] on 04/23/2020 with complaints of fever, weakness and shortness of breath. He was apparently exposed to COVID from a family member and his COVID PCR is positive during this hospitalization. Patient is making managed for COVID-19 infection. He is on supplemental oxygen, and has received steroids. He denies chest pain. Reports generalized weakness, and shortness of breath with mild exertion. EKG on presentation on my personal evaluation showed ventricular paced rhythm. Follow-up EKG without change. Chest x-ray shows cardiomegaly, pulmonary vascular congestion. ABG showed hypoxemia with O2 level 60. Patient's troponins are minimally elevated and are essentially flat. Reason For Visit: Covid exposure, viral pneumonia, CRYS, hypoxia Review of Systems Review of Systems: Narrative: General: Generalized fatigue Psychological: Negative for anxiety, depression Ophthalmic: negative for loss of vision ENT: Negative for epistaxis, headaches Allergy and immunology: Negative for hives, nasal congestion Hematologic and lymphatic: Negative for overt bleeding problems Endocrine: Negative for hot flashes, palpitations Respiratory: Negative for cough, hemoptysis Cardiovascular: Negative for chest pain, was for shortness of breath Gastrointestinal: Negative for abdominal pain, nausea, vomiting, hematochezia Musculoskeletal: Negative for myalgia, joint pains Neurological: Negative for weakness Dermatological: Negative for rash, skin discoloration PMFSH Past Medical History Medical History Atrial fibrillation Barretts esophagus Basal cell carcinoma (BCC) of antihelix of left ear Status post resection Cancer Basal cell left ear Chronic kidney disease, stage III (moderate) Congestive heart failure Echocardiogram September 2017: Mild concentric LVH, mild left ventricular enlargement, moderate global left ventricular systolic dysfunction with EF of 35%, akinetic apical segment mid inferior segment and apical inferior segment, dyskinetic apical septum segment and anterior septum segment, severe left atrial enlargement, mild right atrial enla
[2020-04-25 12:06] LABS: Glucose Point of Care 233 (65-105)
--- NOTE | 2020-04-25 16:10 | PM.IMPN ---
Progress Note: A&P Assessment and Plan (1) COVID-19: Code(s): U07.1 - COVID-19 Status: Acute Assessment and Plan: With questionable diagnosis of PNA on CXR and questionable acute respiratory failure with hypoxia as it has not been documented that patient has been hypoxic on RA. He has been started on Dexamethasone from ED. He is not a candidate of Remdesivir given his poor renal function. Bacterial pneumonia coinfection felt to be less likely at this time. Continue Decadron day #2 Continue supportive care with Tylenol for fevers, Robitussin for cough, and levalbuterol for SOB Wean O2 as tolerated Will do home O2 eval in 1-2 days pending clinical course Continue IS/Cornet Monitor closely (2) Elevated troponin: Code(s): R77.8 - Other specified abnormalities of plasma proteins Status: Acute Assessment and Plan: Troponins mildly elevated but relatively flat. Possibly secondary to COVID disease vs systolic CVF vs poor renal function or combination thereof. Patient denies chest pain/palpitations. Dr. Lawson (Cardiology) consulted and appreciate recommendations. Echo shows EF of 25-30%. Continue conservative medical management at this time per CArdiology recommendations Await further recommendations from Cardiology Continue telemetry for now Monitor (3) Congestive heart failure: Code(s): I50.9 - Heart failure, unspecified Status: Acute Assessment and Plan: Chronic systolic CHF. Echo shows EF of 25-30% with grade 3/4 diastolic dysfunction. CArdiology following and appreciate input Will defer further care to Cardiology service Monitor volume status (4) Chronic kidney disease, stage III (moderate): Qualifiers: Chronic kidney disease stage 3 subtype: stage 3b (GFR 30-44) Qualified Code(s): N18.32 - Chronic kidney disease, stage 3b Code(s): N18.30 - Chronic kidney disease, stage 3 unspecified Status: Acute Assessment and Plan: Cr appears slightly more elevated compared to 2018, but likely due to worsening disease. Cr 2.30 today; stable. Monitor daily (5) Type 2 diabetes mellitus with hyperglycemia: Qualifiers: Diabetes mellitus shelter insulin use: with shelter use Qualified Code(s): E11.65 - Type 2 diabetes mellitus with hyperglycemia; Z79.4 - oysterman (current) use of insulin Code(s): E11.65 - Type 2 diabetes mellitus with hyperglycemia Status: Acute Assessment and Plan: The patient has chronically uncontrolled diabetes. He has insulin pump in place. A1c 8.6 this stay. He has complications including diabetic retinopathy, nephropathy and neuropathy. BGL 200s today. Continue insulin pump; 3 units between midnight and 5:30 a.m. 4 units between 5:30 a.m. and 10:00 p.m. and 4.25 units between 10:00 p.m. and midnight. He uses 1 unit of insulin for every 2 carbs in his insulin to carb ratio. He takes 1 unit for every 10 mg/dL of glucose over 150 Accuchecks ACHS, hypoglycemia protocol, diabetic/HH diet Trulicity has been held as this is NF (6) Sleep apnea: Qualifiers: Sleep apnea type: obstructive Qualified Code(s): G47.33 - Obstructive sleep apnea (adult) (pediatric) Code(s): G47.30 - Sleep apnea, unspecified Status: Acute Assessment and Plan: It is felt that patient would benefit from his home CPAP, given that he is COVID+. Continue CPAP Monitor (7) Hypertension: Code(s): I10 - Essential (primary) hypertension Status: Acute Assessment and Plan: BP a bit soft with BP 100s sys most recently Continue home medications Subjective Date/time s
[2020-04-25] MEDS: RIVAROXABAN 15 MG TABLET PO (16:27)
[2020-04-25 16:46] LABS: Glucose Point of Care 146 (65-105)
[2020-04-25] MEDS: carvediloL 12.5 MG TABLET PO (20:33)
[2020-04-25] MEDS: SODIUM CHLORIDE NASAL GEL 14.1 GM 1 APPLIC NASAL (20:37)
[2020-04-25 21:30] LABS: Glucose Point of Care 124 (65-105)
[2020-04-26] VITALS (12 sets, daily range): BP systolic 86–121; BP diastolic 44–65; PULSE 70; RESP 19–20; TEMP 36.4–38.1; O2SAT 85–99
[2020-04-26] MEDS: LEVOTHYROXINE SODIUM 150 MCG TABLET PO (05:41)
[2020-04-26 06:14] LABS: Hematocrit 27.3 % (42.0-52.0); Hemoglobin 9.4 g/dL (14.0-18.0); Immature Granulocyte Absolute 0.02 K/mm3 (0.00-0.031); Immature Granulocyte Percent A 0.4 % (0-0.5); Lymphocytes Absolute Auto 0.29 K/mm3 (0.9-3.2); Lymphocytes Percent Auto 5.9 % (18.3-44.2); Mean Corpuscular HGB Conc 34.4 g/dl (32-36); Mean Corpuscular Hemoglobin 29.3 pg (26-34); Mean Platelet Volume 10.2 fl (7.4-10.4); Monocytes Absolute Auto 0.4 K/mm3 (0.1-0.6); Monocytes Percent Auto 7.2 % (2.6-8.5); Neutrophils Absolute Auto 4.2 K/mm3 (1.3-6.7); Neutrophils Percent Auto 86.5 % (45.5-73.1); Platelet Count Result 139 k/mm3 (150-375); Red Blood Count 3.21 M/mm3 (4.6-6.20); Red Cell Distribution Width 14.7 % (11.5-14.5); White Blood Count 4.9 K/mm3 (4.5-10.0)
[2020-04-26 07:06] LABS: Alanine Aminotransferase 26 U/L (4-50); Albumin Level 3.5 g/dL (3.5-5.1); Alkaline Phosphatase 45 U/L (38-126); Anion Gap 10 mmol/L (8-16); Aspartate Amino Transferase 72 U/L (17-59); Bilirubin,Total 0.6 mg/dL (0.2-1.3); Blood Urea Nitrogen 89 mg/dL (9-20); CRP 5.1 mg/dL (<1.0); Calcium 7.7 mg/dL (8.4-10.2); Carbon Dioxide 24 mmol/L (22-30); Chloride 96 mmol/L (98-107); Estimated CRCL calculation 32 ml/min; Estimated Glomerular Filt Rate 26; Glucose 77 mg/dL (75-110); Magnesium 1.9 mg/dL (1.6-2.3); Potassium 3.8 mmol/L (3.4-5.0); Sodium 130 mmol/L (137-145)
[2020-04-26 08:15] LABS: Lactate Dehydrogenase 1397 U/L (313-618)
[2020-04-26 08:26] LABS: Glucose Point of Care 92 (65-105)
[2020-04-26] MEDS: POTASSIUM CHLORIDE 20 MEQ TABLET.ER PO (08:43)
[2020-04-26] MEDS: DEXAMETHASONE 2 MG TABLET 6 MG PO (08:43)
[2020-04-26] MEDS: ATORVASTATIN 40 MG TABLET 80 MG PO (08:43)
[2020-04-26] MEDS: CLOPIDOGREL BISULFATE 75 MG TABLET PO (08:43)
[2020-04-26] MEDS: LEVALBUTEROL HFA (*SP) 15 GM INHALER 4 PUFF INHALATION ×4 (08:44→20:43)
[2020-04-26] MEDS: SALINE 0.65% NAS SOLN 44 ML BTL 1 SPRAY NASAL (09:01)
[2020-04-26] MEDS: FUROSEMIDE 20 MG TABLET 60 MG PO (10:57)
[2020-04-26] MEDS: SACUBITRIL/VALSARTAN 49-51 MG TABLET 1 TABLET PO ×2 (10:58→18:22)
[2020-04-26] MEDS: ONDANSETRON HCL ODT 4 MG TABLET PO (10:59)
--- NOTE | 2020-04-26 11:27 | PM.PNCARD ---
Progress Note: A&P Assessment and Plan (1) Elevated troponin: Code(s): R77.8 - Other specified abnormalities of plasma proteins Status: Acute Assessment and Plan: 70-year-old male with coronary artery disease; history of [place] status post PCI/stenting of LAD at outside hospital; ischemic cardiomyopathy/CHF with reduced ejection fraction, atrial fibrillation on chronic anticoagulation with lower dose rivaroxaban, CKD. Patient admitted with fever, dyspnea and and weakness. Found to have COVID-19 infection. Patient has minimal troponin elevation which is essentially flat, and is non ACS related in the setting of congestive heart failure, CKD and infection. Supportive care, continue current medical treatment for patient's CAD including Antiplatelets and statin. (2) Congestive heart failure: Code(s): I50.9 - Heart failure, unspecified Status: Acute Assessment and Plan: Continue home medications with carvedilol, sacubitril /valsartan. Diuresis with furosemide. Monitor renal function and electrolytes closely. Monitor volume status. Decrease carvedilol to 6.25 mg q.h.s.. (3) COVID-19: Code(s): U07.1 - COVID-19 Status: Acute Assessment and Plan: Management as per primary team. Subjective Date/time seen: 04/26/20 11:27 Interval history: Patient is a 70 year old male with a past medical history of obstructive sleep apnea, CHF, coronary artery disease, diabetes mellitus and chronic kidney disease stage 3 who is seen in follow up for COVID pneumonia and elevated troponins. Date of service 04/26/2020: No chest pain. Does have some shortness of breath and some nausea Review of Systems Constitutional: Constitutional: Reports weakness Eyes: Eyes: Denies blurry vision ENT: Reports Normal hearing present Cardiovascular: Cardiovascular: Denies chest pain and Reports leg edema Respiratory: Respiratory: Reports dyspnea Gastrointestinal: Gastrointestinal: Denies abdominal pain Musculoskeletal: Musculoskeletal: Denies neck pain Integumentary/Breasts: Skin/Breast: Denies dry skin Neurologic: Denies headache(s) Psychiatric: Psychiatric: Denies anxiety Endocrine: Endocrine: Denies excessive sweating Hematologic/Lymphatic: Hematologic/Lymphatic: Denies easy bleeding Allergic/Immunologic: Allergic/Immunologic: Denies GI upset with certain foods Exam Narrative: Exam Narrative: Awake alert. Appears in mild respiratory distress Const: General: in distress HENMT: General nose exam: no epistaxis Eyes: Sclera: sclerae normal Neck: Neck: no JVD Resp: Auscultation: diminished lung sounds Cardio: Rate: regular rate Other: V paced rhythm GI: GI Palp: Yes Soft to palpation Skin: General skin exam: normal color Neuro: Cognition (Neuro): normal cognition Speech: normal speech Extrem: General: edema Psych: Affect: normal affect Objective Data Vital Signs Vital Signs: Vital Signs - 24 hr 04/25/20 12:00 04/25/20 16:00 04/25/20 20:00 Temperature 36.2 C L 36.8 C 36.3 C L Pulse Rate 92 70 71 Respiratory Rate 20 20 20 Blood Pressure 101/63 103/55 L 102/50 L Pulse Oximetry 98 92 100 04/25/20 20:33 04/25/20 23:53 04/26/20 00:00 Temperature 36.9 C Pulse Rate 84 70 Respiratory Rate 22 H 20 Blood Pressure 119/65 Pulse Oximetry 99 04/26/20 04:00 04/26/20 08:00 04/26/20 10:25 Temperature 36.4 C 38.1 C H Pulse Rate 70 70 Respiratory Rate 20 20 Blood Pressure 121/64 91/50 L 96/60 L Pulse Oximetry 90 99 Intake/Output Intake/Output: Intake & Output 04/23/20 04/24/20 04/25/20 04/26/20 23:59 23:59 23:59 23:59 Intake Total 2670 2170 740 Output Total 600 2000 Balance 2070 170 740 Meds/Results Medications: Active Medications Generic Name Dose Route Start Last Admin Trade Name Juanq PRN Reason Stop Dose Admin Acetaminophen 650 mg 04/24/20 15:11 Acetaminophen 325 Mg Tablet PO Q4H PRN Mild Pain
--- NOTE | 2020-04-26 11:33 | PCOTNOTE ---
Attempted to see patient this am, however patient declined at this time stating, Not right now. Patient back in bed, sleeping upon entering stated, I have no energy.
[2020-04-26 12:16] LABS: Glucose Point of Care 135 (65-105)
--- NOTE | 2020-04-26 12:31 | PCOTNOTE ---
Attempted to see patient this pm, however RN advised not to see due to medical status.
--- NOTE | 2020-04-26 14:26 | PM.IMPN ---
Progress Note: A&P Assessment and Plan (1) COVID-19: Code(s): U07.1 - COVID-19 Status: Acute Assessment and Plan: With questionable diagnosis of PNA on CXR and questionable acute respiratory failure with hypoxia as it has not been documented that patient has been hypoxic on RA. He has been started on Dexamethasone from ED. He is not a candidate of Remdesivir given his poor renal function. Bacterial pneumonia coinfection felt to be less likely at this time. Continue Decadron day #3 Continue supportive care with Tylenol for fevers, Robitussin for cough, and levalbuterol for SOB Wean O2 as tolerated Will do home O2 eval in 1-2 days pending clinical course Continue IS/Cornet Monitor closely (2) Elevated troponin: Code(s): R77.8 - Other specified abnormalities of plasma proteins Status: Acute Assessment and Plan: Troponins mildly elevated but relatively flat. Possibly secondary to COVID disease vs systolic CHF vs poor renal function or combination thereof. Patient denies chest pain/palpitations. Dr. Lawson (Cardiology) consulted and appreciate recommendations. Echo shows EF of 25-30%. Continue conservative medical management at this time per Cardiology recommendations Await further recommendations from Cardiology Monitor (3) Congestive heart failure: Code(s): I50.9 - Heart failure, unspecified Status: Acute Assessment and Plan: Chronic systolic CHF. Echo shows EF of 25-30% with grade 3/4 diastolic dysfunction. Cardiology following and appreciate input Will defer further care to Cardiology service Monitor volume status (4) Chronic kidney disease, stage III (moderate): Qualifiers: Chronic kidney disease stage 3 subtype: stage 3b (GFR 30-44) Qualified Code(s): N18.32 - Chronic kidney disease, stage 3b Code(s): N18.30 - Chronic kidney disease, stage 3 unspecified Status: Acute Assessment and Plan: Cr appears slightly more elevated compared to 2018, but likely due to worsening disease. Cr 2.50 today; relatively stable but somewhat elevated since arrival Monitor daily (5) Type 2 diabetes mellitus with hyperglycemia: Qualifiers: Diabetes mellitus manager terminal insulin use: with longterm use Qualified Code(s): E11.65 - Type 2 diabetes mellitus with hyperglycemia; Z79.4 - local company intermodal truck driver (current) use of insulin Code(s): E11.65 - Type 2 diabetes mellitus with hyperglycemia Status: Acute Assessment and Plan: The patient has chronically uncontrolled diabetes. He has insulin pump in place. A1c 8.6 this stay. He has complications including diabetic retinopathy, nephropathy and neuropathy. BGL 70s-130s today. Continue insulin pump; 3 units between midnight and 5:30 a.m. 4 units between 5:30 a.m. and 10:00 p.m. and 4.25 units between 10:00 p.m. and midnight. He uses 1 unit of insulin for every 2 carbs in his insulin to carb ratio. He takes 1 unit for every 10 mg/dL of glucose over 150 Accuchecks ACHS, hypoglycemia protocol, diabetic/HH diet Trulicity has been held as this is NF (6) Sleep apnea: Qualifiers: Sleep apnea type: obstructive Qualified Code(s): G47.33 - Obstructive sleep apnea (adult) (pediatric) Code(s): G47.30 - Sleep apnea, unspecified Status: Acute Assessment and Plan: It is felt that patient would benefit from his home CPAP, given that he is COVID+. Continue CPAP Monitor (7) Hypertension: Code(s): I10 - Essential (primary) hypertension Status: Acute Assessment and Plan: BP soft with BP 80-90s sys most recently. Patient asymptomatic Continue home medications per Cardiology recommendations Carv
[2020-04-26] MEDS: RIVAROXABAN 15 MG TABLET PO (17:01)
[2020-04-26 18:23] LABS: Glucose Point of Care 362 (65-105)
[2020-04-26] MEDS: ACETAMINOPHEN 325 MG TABLET 650 MG PO (18:24)
[2020-04-26] MEDS: SODIUM CHLORIDE NASAL GEL 14.1 GM 1 APPLIC NASAL (22:47)
[2020-04-27] VITALS (7 sets, daily range): BP systolic 92–138; BP diastolic 50–92; PULSE 63–82; RESP 18–21; TEMP 36.4–36.8; O2SAT 90–100
[2020-04-27 06:18] LABS: Hematocrit 26.4 % (42.0-52.0); Hemoglobin 9.1 g/dL (14.0-18.0); Immature Granulocyte Absolute 0.02 K/mm3 (0.00-0.031); Immature Granulocyte Percent A 0.5 % (0-0.5); Lymphocytes Absolute Auto 0.32 K/mm3 (0.9-3.2); Lymphocytes Percent Auto 7.9 % (18.3-44.2); Mean Corpuscular HGB Conc 34.5 g/dl (32-36); Mean Corpuscular Hemoglobin 29.5 pg (26-34); Mean Corpuscular Volume 85.7 fl (80-100); Mean Platelet Volume 10.2 fl (7.4-10.4); Monocytes Absolute Auto 0.4 K/mm3 (0.1-0.6); Monocytes Percent Auto 8.8 % (2.6-8.5); Neutrophils Absolute Auto 3.4 K/mm3 (1.3-6.7); Neutrophils Percent Auto 82.8 % (45.5-73.1); Platelet Count Result 134 k/mm3 (150-375); Red Blood Count 3.08 M/mm3 (4.6-6.20); Red Cell Distribution Width 15.2 % (11.5-14.5); White Blood Count 4.1 K/mm3 (4.5-10.0)
[2020-04-27 06:36] LABS: Alanine Aminotransferase 38 U/L (4-50); Albumin Level 3.4 g/dL (3.5-5.1); Alkaline Phosphatase 45 U/L (38-126); Anion Gap 10 mmol/L (8-16); Aspartate Amino Transferase 83 U/L (17-59); Bilirubin,Total 0.6 mg/dL (0.2-1.3); Blood Urea Nitrogen 116 mg/dL (9-20); Calcium 7.3 mg/dL (8.4-10.2); Carbon Dioxide 21 mmol/L (22-30); Chloride 97 mmol/L (98-107); Estimated CRCL calculation 23 ml/min; Estimated Glomerular Filt Rate 17; Glucose 196 mg/dL (75-110); Magnesium 2.2 mg/dL (1.6-2.3); Potassium 4.5 mmol/L (3.4-5.0); Sodium 128 mmol/L (137-145)
[2020-04-27] MEDS: LEVOTHYROXINE SODIUM 150 MCG TABLET PO (06:38)
[2020-04-27] MEDS: LEVALBUTEROL HFA (*SP) 15 GM INHALER 4 PUFF INHALATION ×4 (08:47→20:26)
[2020-04-27] MEDS: SACUBITRIL/VALSARTAN 49-51 MG TABLET 1 TABLET PO (08:48)
[2020-04-27] MEDS: DEXAMETHASONE 2 MG TABLET 6 MG PO (08:48)
[2020-04-27] MEDS: POTASSIUM CHLORIDE 20 MEQ TABLET.ER PO (08:48)
[2020-04-27] MEDS: ATORVASTATIN 40 MG TABLET 80 MG PO (08:49)
[2020-04-27] MEDS: CLOPIDOGREL BISULFATE 75 MG TABLET PO (08:49)
[2020-04-27 09:13] LABS: Glucose Point of Care 172 (65-105)
--- NOTE | 2020-04-27 11:26 | PM.PNCARD ---
Progress Note: A&P Assessment and Plan (1) Elevated troponin: Code(s): R77.8 - Other specified abnormalities of plasma proteins Status: Acute Assessment and Plan: 70-year-old male with coronary artery disease; history of [place] status post PCI/stenting of LAD at outside hospital; ischemic cardiomyopathy/CHF with reduced ejection fraction, atrial fibrillation on chronic anticoagulation with lower dose rivaroxaban, CKD. Patient admitted with fever, dyspnea and and weakness. Found to have COVID-19 infection. Patient has minimal troponin elevation which is essentially flat, and is non ACS related in the setting of congestive heart failure, CKD and infection. Supportive care, continue current medical treatment for patient's CAD including Antiplatelets and statin. (2) Congestive heart failure: Code(s): I50.9 - Heart failure, unspecified Status: Acute Assessment and Plan: Continue home medications with carvedilol, sacubitril /valsartan. Diuresis with furosemide. Monitor renal function and electrolytes closely. Monitor volume status. Hold carvedilol and hold Entresto today. Hopefully this will increase blood pressure and increase renal perfusion. Once renal function stabilizes, will resume Entresto and carvedilol (3) COVID-19: Code(s): U07.1 - COVID-19 Status: Acute Assessment and Plan: Management as per primary team. (4) Acute kidney injury superimposed on chronic kidney disease: Code(s): N17.9 - Acute kidney failure, unspecified; N18.9 - Chronic kidney disease, unspecified Status: Acute Assessment and Plan: Will hold Entresto and Coreg today Subjective Date/time seen: 04/27/20 11:26 Interval history: Patient is a 70 year old male with a past medical history of obstructive sleep apnea, CHF, coronary artery disease, diabetes mellitus and chronic kidney disease stage 3 who is seen in follow up for COVID pneumonia and elevated troponins. Date of service 04/27/2020: No chest pain. Feels better today. Less short of breath Review of Systems Constitutional: Constitutional: Denies excessive sweating, Denies headache(s) and Reports weakness Eyes: Eyes: Denies blurry vision ENT: Reports Normal hearing present, Denies headache(s) and Denies neck pain Cardiovascular: Cardiovascular: Denies chest pain, Reports leg edema and Reports dyspnea Respiratory: Respiratory: Reports dyspnea Gastrointestinal: Gastrointestinal: Denies abdominal pain Musculoskeletal: Musculoskeletal: Denies neck pain Integumentary/Breasts: Skin/Breast: Denies dry skin Neurologic: Reports Normal hearing present, Denies headache(s) and Reports weakness Psychiatric: Psychiatric: Denies anxiety Endocrine: Endocrine: Denies excessive sweating Hematologic/Lymphatic: Hematologic/Lymphatic: Denies easy bleeding Allergic/Immunologic: Allergic/Immunologic: Denies GI upset with certain foods Exam Narrative: Exam Narrative: Awake alert. Appears comfortable Const: General: in distress HENMT: General nose exam: no epistaxis Eyes: Sclera: sclerae normal Neck: Neck: no JVD Cardio: Rate: regular rate Skin: General skin exam: normal color Neuro: Cranial nerves: Yes Normal hearing present Cognition (Neuro): normal cognition Speech: normal speech Extrem: General: edema Psych: Affect: normal affect Objective Data Vital Signs Vital Signs: Vital Signs - 24 hr 04/26/20 12:00 04/26/20 12:40 04/26/20 12:45 Temperature 37.4 C Pulse Rate 70 Respiratory Rate 20 Blood Pressure 86/44 L Pulse Oximetry 94 85 L 91 04/26/20 16:00 04/26/20 18:24 04/26/20 20:00 Temperature 37.4 C 37.4 C 36.5 C Pulse Rate 70 70 Respiratory Rate 20 20 Blood Pressure 90/49 L 100/56 L Pulse Oximetry 96 97 04/26/20 22:12 04/27/20 00:00 04/27/20 04:00 Temperature 36.6 C 36.6 C Pulse Rate 70 74 68 Respiratory Rate 19 20 20 Blood Pressure 120/62 138/92 H Pulse Oxim
[2020-04-27 12:28] LABS: Glucose Point of Care 172 (65-105)
--- NOTE | 2020-04-27 14:29 | P.CONNP_ITS ---
Assessment and Plan Assessment and plan (1) CRYS (acute kidney injury): Code(s): N17.9 - Acute kidney failure, unspecified Status: Acute Assessment and Plan: * suspect due to relative hypotension although COVID-19 infection may playing a role * check urine electrolytes nd renal ultrasound * BP medication adjustments noted * hopefully with a higher BP, his renal function should improve * follow repeat labs and UOP (2) Stage 3b chronic kidney disease: Code(s): N18.32 - Chronic kidney disease, stage 3b Status: Chronic Assessment and Plan: * from review of office records, baseline creatinine runs around 1.6 - 2.1mg/dl in the last 2 years * due to HTN, DM, age and possible SHARAD * outpatient evaluation (serologies, urine sediment analysis, immunofixation...etc) were negative (3) COVID-19 virus infection: Code(s): U07.1 - COVID-19 Status: Acute Assessment and Plan: * as noted by positive test * on decadron * remdesivir contraindicated due to CKD * supplemental oxygen * continue supportive therapy (4) Hypertension: Code(s): I10 - Essential (primary) hypertension Status: Acute Assessment and Plan: * issues with relative hypotension noted in the last few days * several BP medications on hold a this time * follow trend of hemodynamics (5) Congestive heart failure: Code(s): I50.9 - Heart failure, unspecified Status: Chronic Assessment and Plan: * appears compensated at this time * however, several medications on hold now due to low BP and CRYS * Cardiology following (6) Sleep apnea: Qualifiers: Sleep apnea type: obstructive Qualified Code(s): G47.33 - Obstructive sleep apnea (adult) (pediatric) Code(s): G47.30 - Sleep apnea, unspecified Status: Chronic Assessment and Plan: * continuie CPAP (7) Type 2 diabetes mellitus with hyperglycemia: Qualifiers: Diabetes mellitus terminologist insulin use: with terminologist use Qualified Code(s): E11.65 - Type 2 diabetes mellitus with hyperglycemia; Z79.4 - bed bug exterminator (current) use of insulin Code(s): E11.65 - Type 2 diabetes mellitus with hyperglycemia Status: Chronic Assessment and Plan: * follow accuchecks * glycemic control Will continue to follow. History of Present Illness Reason for Consult Consult date: 04/27/20 Reason for consult: acute renal failure (on chronic kidney disease) Chief Complaint Chief complaint: Covid exposure, viral pneumonia, CRYS, hypoxia History of Present Illness Narrative: The patient is a 70 year old male with a past medical history as outlined below Who presented to [facility] Emergency room with complaints of shortness of breath associated with fever and weakness. The patient states that his daughter tested positive for COVID 19 last week. He himself has been feeling ill for about 4-5 days prior to admission making him concern for the possibility that he may have COVID-19 as well. Other associated symptoms included headaches, productive cough and high fever with reportedly a temperature as high as 101.9?. He denies any history with regard to loss of taste or smell but he had does admit that his appetite has significantly diminished. He has been compliant with all of his other medications and reports no overt shortness of breath or chest pain. However, given the symptoms as mentioned above, he came to the ER for further evaluation. Workup and evaluation emergency room demonstrated the patient to be
--- NOTE | 2020-04-27 14:29 | PM.CNNEP ---
Assessment and Plan Assessment and plan (1) CRYS (acute kidney injury): Code(s): N17.9 - Acute kidney failure, unspecified Status: Acute Assessment and Plan: suspect due to relative hypotension although COVID-19 infection may playing a role check urine electrolytes nd renal ultrasound BP medication adjustments noted hopefully with a higher BP, his renal function should improve follow repeat labs and UOP (2) Stage 3b chronic kidney disease: Code(s): N18.32 - Chronic kidney disease, stage 3b Status: Chronic Assessment and Plan: from review of office records, baseline creatinine runs around 1.6 - 2.1mg/dl in the last 2 years due to HTN, DM, age and possible SHARAD outpatient evaluation (serologies, urine sediment analysis, immunofixation...etc) were negative (3) COVID-19 virus infection: Code(s): U07.1 - COVID-19 Status: Acute Assessment and Plan: as noted by positive test on decadron remdesivir contraindicated due to CKD supplemental oxygen continue supportive therapy (4) Hypertension: Code(s): I10 - Essential (primary) hypertension Status: Acute Assessment and Plan: issues with relative hypotension noted in the last few days several BP medications on hold a this time follow trend of hemodynamics (5) Congestive heart failure: Code(s): I50.9 - Heart failure, unspecified Status: Chronic Assessment and Plan: appears compensated at this time however, several medications on hold now due to low BP and CRYS Cardiology following (6) Sleep apnea: Qualifiers: Sleep apnea type: obstructive Qualified Code(s): G47.33 - Obstructive sleep apnea (adult) (pediatric) Code(s): G47.30 - Sleep apnea, unspecified Status: Chronic Assessment and Plan: continuie CPAP (7) Type 2 diabetes mellitus with hyperglycemia: Qualifiers: Diabetes mellitus assisted insulin use: with assisted use Qualified Code(s): E11.65 - Type 2 diabetes mellitus with hyperglycemia; Z79.4 - adjunct faculty for medical terminology (current) use of insulin Code(s): E11.65 - Type 2 diabetes mellitus with hyperglycemia Status: Chronic Assessment and Plan: follow accuchecks glycemic control Will continue to follow. History of Present Illness Reason for Consult Consult date: 04/27/20 Reason for consult: acute renal failure (on chronic kidney disease) Chief Complaint Chief complaint: Covid exposure, viral pneumonia, CRYS, hypoxia History of Present Illness Narrative: The patient is a 70 year old male with a past medical history as outlined below Who presented to [facility] Emergency room with complaints of shortness of breath associated with fever and weakness. The patient states that his daughter tested positive for COVID 19 last week. He himself has been feeling ill for about 4-5 days prior to admission making him concern for the possibility that he may have COVID-19 as well. Other associated symptoms included headaches, productive cough and high fever with reportedly a temperature as high as 101.9?. He denies any history with regard to loss of taste or smell but he had does admit that his appetite has significantly diminished. He has been compliant with all of his other medications and reports no overt shortness of breath or chest pain. However, given the symptoms as mentioned above, he came to the ER for further evaluation. Workup and evaluation emergency room demonstrated the patient to be hemodynamically stable with routine blood tests that were consistent with his known history of chronic kidney disease. He was noted to be somewhat hypoxic and required supplemental oxygen and given the a for mentioned history as above, he was tested for COVID-19 and empirically started on steroid therapy. Given his multiple medical morbidities and the concern that if he does have COVID-19 infection, he may decompensa
--- NOTE | 2020-04-27 16:20 | PM.IMPN ---
Progress Note: A&P Assessment and Plan (1) COVID-19: Code(s): U07.1 - COVID-19 Status: Acute Assessment and Plan: With questionable diagnosis of PNA on CXR. With acute respiratory failure with hypoxia. He has been started on Dexamethasone from ED. He is not a candidate of Remdesivir given his poor renal function. Bacterial pneumonia coinfection felt to be less likely at this time. Symptomatically, patient feels better, still requiring 2L O2 Continue Decadron day #4 Continue supportive care with Tylenol for fevers, Robitussin for cough, and levalbuterol for SOB Wean O2 as tolerated Will do home O2 eval when close for discharge Continue IS/Cornet Monitor closely (2) Acute kidney injury superimposed on chronic kidney disease: Code(s): N17.9 - Acute kidney failure, unspecified; N18.9 - Chronic kidney disease, unspecified Status: Acute Assessment and Plan: Possibly due to poor perfusion from soft BP/hypotension. Cr now 3.50 today, up from 2.50 yesterday. Some BP meds have been held. He follows Dr. Matthew as an outpatient. Home metolazone has been held since admission given soft BP. Nephrology has been consulted and appreciate input Entresto and Coreg have been held per Cardiology; Lasix continues Await further rec from Nephrology Monitor daily (3) Elevated troponin: Code(s): R77.8 - Other specified abnormalities of plasma proteins Status: Acute Assessment and Plan: Troponins mildly elevated but relatively flat. Possibly secondary to COVID disease vs systolic CHF vs poor renal function or combination thereof. Patient denies chest pain/palpitations. HCG (Cardiology) consulted and appreciate recommendations. Echo shows EF of 25-30%. Continue conservative medical management at this time per Cardiology recommendations Await further recommendations from Cardiology Monitor (4) Congestive heart failure: Code(s): I50.9 - Heart failure, unspecified Status: Acute Assessment and Plan: Chronic systolic CHF. Echo shows EF of 25-30% with grade 3/4 diastolic dysfunction. Cardiology following and appreciate input Will defer further care to Cardiology service Monitor volume status (5) Type 2 diabetes mellitus with hyperglycemia: Qualifiers: Diabetes mellitus longterm insulin use: with longterm use Qualified Code(s): E11.65 - Type 2 diabetes mellitus with hyperglycemia; Z79.4 - termination clerk (current) use of insulin Code(s): E11.65 - Type 2 diabetes mellitus with hyperglycemia Status: Acute Assessment and Plan: The patient has chronically uncontrolled diabetes. He has insulin pump in place. A1c 8.6 this stay. He has complications including diabetic retinopathy, nephropathy and neuropathy. BGL 100s today. Continue insulin pump; 3 units between midnight and 5:30 a.m. 4 units between 5:30 a.m. and 10:00 p.m. and 4.25 units between 10:00 p.m. and midnight. He uses 1 unit of insulin for every 2 carbs in his insulin to carb ratio. He takes 1 unit for every 10 mg/dL of glucose over 150 Accuchecks ACHS, hypoglycemia protocol, diabetic/HH diet Trulicity has been held as this is NF (6) Sleep apnea: Qualifiers: Sleep apnea type: obstructive Qualified Code(s): G47.33 - Obstructive sleep apnea (adult) (pediatric) Code(s): G47.30 - Sleep apnea, unspecified Status: Acute Assessment and Plan: It is felt that patient would benefit from his home CPAP, given that he is COVID+. Continue CPAP Monitor (7) Hypertension: Code(s): I10 - Essential (primary) hypertension Status: Acute Assessment and Plan: BP soft with BP 90s sys most recently.
[2020-04-27] MEDS: RIVAROXABAN 15 MG TABLET PO (16:41)
[2020-04-27 17:20] LABS: Glucose Point of Care 147 (65-105)
[2020-04-27] MEDS: SODIUM CHLORIDE NASAL GEL 14.1 GM 1 APPLIC NASAL (20:26)
[2020-04-27 22:03] LABS: Glucose Point of Care 113 (65-105)
[2020-04-28] VITALS (11 sets, daily range): BP systolic 94–131; BP diastolic 54–82; PULSE 69–75; RESP 20–30; TEMP 36.4–36.9; O2SAT 73–96
[2020-04-28] MEDS: LEVOTHYROXINE SODIUM 150 MCG TABLET PO (05:30)
[2020-04-28] MEDS: GLUCOSE ORAL GEL 15 GM OF GLUCSE IN 37.5 GM TUBE PO (05:40)
[2020-04-28 06:28] LABS: Basophils Percent Auto 0.1 % (0.2-1.2); Hematocrit 29.7 % (42.0-52.0); Hemoglobin 10.4 g/dL (14.0-18.0); Immature Granulocyte Absolute 0.07 K/mm3 (0.00-0.031); Immature Granulocyte Percent A 0.9 % (0-0.5); Lymphocytes Absolute Auto 0.44 K/mm3 (0.9-3.2); Lymphocytes Percent Auto 5.4 % (18.3-44.2); Mean Corpuscular Hemoglobin 29.3 pg (26-34); Mean Corpuscular Volume 83.7 fl (80-100); Mean Platelet Volume 10.4 fl (7.4-10.4); Monocytes Absolute Auto 0.5 K/mm3 (0.1-0.6); Monocytes Percent Auto 6.3 % (2.6-8.5); Neutrophils Absolute Auto 7.2 K/mm3 (1.3-6.7); Neutrophils Percent Auto 87.3 % (45.5-73.1); Platelet Count Result 213 k/mm3 (150-375); Red Blood Count 3.55 M/mm3 (4.6-6.20); Red Cell Distribution Width 14.6 % (11.5-14.5); White Blood Count 8.2 K/mm3 (4.5-10.0)
[2020-04-28 06:38] LABS: Glucose Point of Care 98 (65-105)
[2020-04-28 06:38] LABS: Glucose Point of Care 54 (65-105)
--- NOTE | 2020-04-28 06:40 | PC.NURSE ---
82.2 insulin per pump
[2020-04-28 07:02] LABS: Alanine Aminotransferase 42 U/L (4-50); Albumin Level 3.8 g/dL (3.5-5.1); Alkaline Phosphatase 53 U/L (38-126); Anion Gap 13 mmol/L (8-16); Aspartate Amino Transferase 84 U/L (17-59); Bilirubin,Total 0.7 mg/dL (0.2-1.3); CRP 4.4 mg/dL (<1.0); Calcium 7.7 mg/dL (8.4-10.2); Carbon Dioxide 21 mmol/L (22-30); Chloride 97 mmol/L (98-107); Estimated CRCL calculation 26 ml/min; Estimated Glomerular Filt Rate 20; Glucose 75 mg/dL (75-110); Magnesium 2.2 mg/dL (1.6-2.3); Potassium 4.1 mmol/L (3.4-5.0); Sodium 131 mmol/L (137-145)
[2020-04-28 08:22] LABS: Blood Urea Nitrogen 131 mg/dL (9-20); Lactate Dehydrogenase 2047 U/L (313-618)
[2020-04-28] MEDS: ATORVASTATIN 40 MG TABLET 80 MG PO (08:48)
[2020-04-28] MEDS: POTASSIUM CHLORIDE 20 MEQ TABLET.ER PO (08:48)
[2020-04-28] MEDS: DEXAMETHASONE 2 MG TABLET 6 MG PO (08:48)
[2020-04-28] MEDS: CLOPIDOGREL BISULFATE 75 MG TABLET PO (08:49)
[2020-04-28] MEDS: LEVALBUTEROL HFA (*SP) 15 GM INHALER 4 PUFF INHALATION ×3 (08:50→17:00)
[2020-04-28 09:53] LABS: Ferritin > 2000.00 ng/mL (11.1-264)
--- NOTE | 2020-04-28 10:40 | PM.PNCARD ---
Progress Note: A&P Assessment and Plan (1) Elevated troponin: Code(s): R77.8 - Other specified abnormalities of plasma proteins Status: Acute Assessment and Plan: 70-year-old male with coronary artery disease; history of [place] status post PCI/stenting of LAD at outside hospital; ischemic cardiomyopathy/CHF with reduced ejection fraction, atrial fibrillation on chronic anticoagulation with lower dose rivaroxaban, CKD. Patient admitted with fever, dyspnea and and weakness. Found to have COVID-19 infection. Patient has minimal troponin elevation which is essentially flat, and is non ACS related in the setting of congestive heart failure, CKD and infection. Supportive care, continue current medical treatment for patient's CAD including Antiplatelets and statin. (2) Congestive heart failure: Code(s): I50.9 - Heart failure, unspecified Status: Acute Assessment and Plan: Hold carvedilol and hold Entresto today. Hopefully this will increase blood pressure and increase renal perfusion. Once renal function stabilizes, will resume Entresto and carvedilol (3) COVID-19: Code(s): U07.1 - COVID-19 Status: Acute Assessment and Plan: Management as per primary team. (4) Acute kidney injury superimposed on chronic kidney disease: Code(s): N17.9 - Acute kidney failure, unspecified; N18.9 - Chronic kidney disease, unspecified Status: Acute Assessment and Plan: Continue to hold Entresto and carvedilol given hypotension. Renal function is improving today as compared to yesterday Subjective Date/time seen: 04/28/20 10:40 Interval history: Patient is a 70 year old male with a past medical history of obstructive sleep apnea, CHF, coronary artery disease, diabetes mellitus and chronic kidney disease stage 3 who is seen in follow up for COVID pneumonia and elevated troponins. Date of service 04/28/2020: No chest pain. Feels better today. Dyspnea comes and goes Review of Systems Constitutional: Constitutional: Denies excessive sweating, Denies headache(s) and Reports weakness Eyes: Eyes: Denies blurry vision ENT: Reports Normal hearing present, Denies headache(s) and Denies neck pain Cardiovascular: Cardiovascular: Denies chest pain, Reports leg edema and Reports dyspnea Respiratory: Respiratory: Reports dyspnea Gastrointestinal: Gastrointestinal: Denies abdominal pain Musculoskeletal: Musculoskeletal: Denies neck pain Integumentary/Breasts: Skin/Breast: Denies dry skin Neurologic: Reports Normal hearing present, Denies headache(s) and Reports weakness Psychiatric: Psychiatric: Denies anxiety Endocrine: Endocrine: Denies excessive sweating Hematologic/Lymphatic: Hematologic/Lymphatic: Denies easy bleeding Allergic/Immunologic: Allergic/Immunologic: Denies GI upset with certain foods Exam Narrative: Exam Narrative: Awake alert. Appears comfortable Const: General: in distress HENMT: General nose exam: no epistaxis Eyes: Sclera: sclerae normal Neck: Neck: no JVD Resp: Auscultation: diminished lung sounds Cardio: Rate: regular rate Other: V paced rhythm Skin: General skin exam: normal color Neuro: Cranial nerves: Yes Normal hearing present Cognition (Neuro): normal cognition Speech: normal speech Extrem: General: edema Psych: Affect: normal affect Objective Data Vital Signs Vital Signs: Vital Signs - 24 hr 04/27/20 12:00 04/27/20 16:00 04/27/20 20:00 Temperature 36.6 C 36.4 C L 36.6 C Pulse Rate 70 70 70 Respiratory Rate 20 18 20 Blood Pressure 92/50 L 92/60 L 92/55 L Pulse Oximetry 100 94 96 04/27/20 22:42 04/28/20 00:00 04/28/20 04:00 Temperature 36.5 C 36.4 C Pulse Rate 70 70 69 Respiratory Rate 21 H 20 20 Blood Pressure 102/63 105/82 Pulse Oximetry 93 96 92 04/28/20 04:12 04/28/20 08:00 Temperature 36.7 C Pulse Rate 70 70 Respiratory Rate 20 20 Blood Pressure 104/55 L Pulse Oximetry 91 90 In
[2020-04-28 12:18] LABS: Glucose Point of Care 154 (65-105)
--- NOTE | 2020-04-28 13:44 | P.PNNP_ITS ---
Progress Note: A&P Assessment and Plan (1) CRYS (acute kidney injury): Code(s): N17.9 - Acute kidney failure, unspecified Status: Acute Assessment and Plan: * suspect due to relative hypotension although COVID-19 infection may be playing a role as well * renal ultrasound without any acute changes * urine electrolytes pending * BP medication adjustments noted * hopefully with a higher BP, his renal function should continue to improve * follow repeat labs and UOP (2) Stage 3b chronic kidney disease: Code(s): N18.32 - Chronic kidney disease, stage 3b Status: Chronic Assessment and Plan: * from review of office records, baseline creatinine runs around 1.6 - 2.1mg/dl in the last 2 years * due to HTN, DM, age and possible SHARAD * outpatient evaluation (serologies, urine sediment analysis, immunofixation...etc) were negative (3) COVID-19 virus infection: Code(s): U07.1 - COVID-19 Status: Acute Assessment and Plan: * as noted by positive test * on decadron * remdesivir contraindicated due to CKD * supplemental oxygen * continue supportive therapy (4) Hypertension: Code(s): I10 - Essential (primary) hypertension Status: Acute Assessment and Plan: * issues with relative hypotension noted in the last few days * several BP medications on hold a this time * follow trend of hemodynamics (5) Congestive heart failure: Code(s): I50.9 - Heart failure, unspecified Status: Chronic Assessment and Plan: * appears compensated at this time * however, several medications on hold now due to low BP and CRYS * Cardiology following (6) Sleep apnea: Qualifiers: Sleep apnea type: obstructive Qualified Code(s): G47.33 - Obstructive sleep apnea (adult) (pediatric) Code(s): G47.30 - Sleep apnea, unspecified Status: Chronic Assessment and Plan: * continuie CPAP (7) Type 2 diabetes mellitus with hyperglycemia: Qualifiers: Diabetes mellitus jail insulin use: with jail use Qualified Code(s): E11.65 - Type 2 diabetes mellitus with hyperglycemia; Z79.4 - correction (current) use of insulin Code(s): E11.65 - Type 2 diabetes mellitus with hyperglycemia Status: Chronic Assessment and Plan: * follow accuchecks * glycemic control Will continue to follow. Subjective Date/time seen: 04/28/20 13:44 Main complaint at the time of my visit is that of increasing fatigue and weakness in association with fluctuating shortness of breath; seem even with minimal exertion he feels his breathing becomes problematic; still urinating at this time. Exam Narrative: Exam Narrative: General: Elderly male in mild distress Heart: normal S1 and S2; no rub Lungs: coarse with a few crackles at bases Abdomen: soft, nontender, nondistended, positive bowel sounds Extremities: no cyanosis or clubbing; chronic edema noted Skin: warm and dry Objective Data Vital Signs Vital Signs: Vital Signs Temp Pulse Resp BP Pulse Ox Pulse Ox 04/28/20 12:00 36.9 C 70 20 94/54 L 90 04/28/20 11:00 75 L 04/28/20 08:00 36.7 C 70 20 104/55 L 90 04/28/20 04:12 70 20 91 04/28/20 04:00 36.4 C 69 20 105/82 92 04/28/20 00:00 36.5 C 70 20 102/63 96 04/27/20 22:42 70 21 H 93 04/27/20 20:00 36.6 C 70 20 92/55 L 96
--- NOTE | 2020-04-28 13:44 | PM.PNNEP ---
Progress Note: A&P Assessment and Plan (1) CRYS (acute kidney injury): Code(s): N17.9 - Acute kidney failure, unspecified Status: Acute Assessment and Plan: suspect due to relative hypotension although COVID-19 infection may be playing a role as well renal ultrasound without any acute changes urine electrolytes pending BP medication adjustments noted hopefully with a higher BP, his renal function should continue to improve follow repeat labs and UOP (2) Stage 3b chronic kidney disease: Code(s): N18.32 - Chronic kidney disease, stage 3b Status: Chronic Assessment and Plan: from review of office records, baseline creatinine runs around 1.6 - 2.1mg/dl in the last 2 years due to HTN, DM, age and possible SHARAD outpatient evaluation (serologies, urine sediment analysis, immunofixation...etc) were negative (3) COVID-19 virus infection: Code(s): U07.1 - COVID-19 Status: Acute Assessment and Plan: as noted by positive test on decadron remdesivir contraindicated due to CKD supplemental oxygen continue supportive therapy (4) Hypertension: Code(s): I10 - Essential (primary) hypertension Status: Acute Assessment and Plan: issues with relative hypotension noted in the last few days several BP medications on hold a this time follow trend of hemodynamics (5) Congestive heart failure: Code(s): I50.9 - Heart failure, unspecified Status: Chronic Assessment and Plan: appears compensated at this time however, several medications on hold now due to low BP and CRYS Cardiology following (6) Sleep apnea: Qualifiers: Sleep apnea type: obstructive Qualified Code(s): G47.33 - Obstructive sleep apnea (adult) (pediatric) Code(s): G47.30 - Sleep apnea, unspecified Status: Chronic Assessment and Plan: continuie CPAP (7) Type 2 diabetes mellitus with hyperglycemia: Qualifiers: Diabetes mellitus manager terminal insulin use: with manager terminal use Qualified Code(s): E11.65 - Type 2 diabetes mellitus with hyperglycemia; Z79.4 - rat exterminator (current) use of insulin Code(s): E11.65 - Type 2 diabetes mellitus with hyperglycemia Status: Chronic Assessment and Plan: follow accuchecks glycemic control Will continue to follow. Subjective Date/time seen: 04/28/20 13:44 Main complaint at the time of my visit is that of increasing fatigue and weakness in association with fluctuating shortness of breath; seem even with minimal exertion he feels his breathing becomes problematic; still urinating at this time. Exam Narrative: Exam Narrative: General: Elderly male in mild distress Heart: normal S1 and S2; no rub Lungs: coarse with a few crackles at bases Abdomen: soft, nontender, nondistended, positive bowel sounds Extremities: no cyanosis or clubbing; chronic edema noted Skin: warm and dry Objective Data Vital Signs Vital Signs: Vital Signs Temp Pulse Resp BP Pulse Ox Pulse Ox 04/28/20 12:00 36.9 C 70 20 94/54 L 90 04/28/20 11:00 75 L 04/28/20 08:00 36.7 C 70 20 104/55 L 90 04/28/20 04:12 70 20 91 04/28/20 04:00 36.4 C 69 20 105/82 92 04/28/20 00:00 36.5 C 70 20 102/63 96 04/27/20 22:42 70 21 H 93 04/27/20 20:00 36.6 C 70 20 92/55 L 96 Intake/Output Intake/Output: Intake & Output 04/25/20 04/26/20 04/27/20 04/28/20 23:59 23:59 23:59 23:59 Intake Total 2170 1870 1120 590 Output Total 1999 Balance 170 1870 1120 590 Meds/Results Medications: Active Medications Generic Name Dose Route Start Last Admin Trade Name Freq PRN Reason Stop Dose Admin Acetaminophen 650 mg 04/24/20 15:11 04/26/20 18:24 Acetaminophen 325 Mg Tablet PO 650 mg Q4H PRN Administration Mild Pain (1-3) or Fever Ascorbic Acid 500 mg 04/29/20 09:00 Ascorbic Acid 500 Mg Tablet PO DAILY [facility] Atorv
--- NOTE | 2020-04-28 15:20 | P.PNIM_ITS ---
Progress Note: A&P Assessment and Plan (1) COVID-19: Code(s): U07.1 - COVID-19 Status: Acute Assessment and Plan: With questionable diagnosis of PNA on CXR. With acute respiratory failure with hypoxia. He has been started on Dexamethasone from ED. He is not a candidate of Remdesivir given his poor renal function. Bacterial pneumonia coinfection felt to be less likely at this time. Symptomatically, patient feels better, still requiring 4L O2 * Continue Decadron day #5 * Continue supportive care with Tylenol for fevers, Robitussin for cough, and levalbuterol for SOB. Will do vit d, vit c, and zinc sulfate * Wean O2 as tolerated * Will do home O2 eval when close for discharge * Continue IS/Cornet * Monitor closely (2) Acute kidney injury superimposed on chronic kidney disease: Code(s): N17.9 - Acute kidney failure, unspecified; N18.9 - Chronic kidney disease, unspecified Status: Acute Assessment and Plan: Possibly due to poor perfusion from soft BP/hypotension. Cr now 3.10 today, improvement. Some BP/CHF meds have been held. Home metolazone has been held since admission given soft BP. He follows Dr. Matthew as an outpatient. * Nephrology has been consulted and appreciate input * Entresto and Coreg have been held per Cardiology; Lasix continues * Await further rec from Nephrology * Monitor daily (3) Elevated troponin: Code(s): R77.8 - Other specified abnormalities of plasma proteins Status: Acute Assessment and Plan: Troponins mildly elevated but relatively flat. Possibly secondary to COVID disease vs systolic CHF vs poor renal function or combination thereof. Patient denies chest pain/palpitations. HCG (Cardiology) consulted and appreciate recommendations. Echo shows EF of 25-30%. * Continue conservative medical management at this time per Cardiology recommendations * Await further recommendations from Cardiology * Monitor (4) Congestive heart failure: Code(s): I50.9 - Heart failure, unspecified Status: Acute Assessment and Plan: Chronic systolic CHF. Echo shows EF of 25-30% with grade 3/4 diastolic dysfuncti on. Cardiology following and appreciate input * Will defer further care to Cardiology service * Monitor volume status (5) Type 2 diabetes mellitus with hyperglycemia: Qualifiers: Diabetes mellitus director long term care insulin use: with director long term care use Qualified Code(s): E11.65 - Type 2 diabetes mellitus with hyperglycemia; Z79.4 - [facility] (current) use of insulin Code(s): E11.65 - Type 2 diabetes mellitus with hyperglycemia Status: Acute Assessment and Plan: The patient has chronically uncontrolled diabetes. He has insulin pump in place. A1c 8.6 this stay. He has complications including diabetic retinopathy, nephropathy and neuropathy. BGL 50s-100s today. * Continue insulin pump; 3 units between midnight and 5:30 a.m. 4 units between 5:30 a.m. and 10:00 p.m. and 4.25 units between 10:00 p.m. and midnight. He uses 1 unit of insulin for every 2 carbs in his insulin to carb ratio. He takes 1 unit for every 10 mg/dL of glucose over 150 * Accuchecks ACHS, hypoglycemia protocol, diabetic/HH diet * Trulicity has been held as this is NF (6) Sleep apnea: Qualifiers: Sleep apnea type: obstructive Qualified Code(s): G47.33 - Obstructive sleep apnea (adult) (pediatric) Code(s): G47.30 - Sleep apnea,
--- NOTE | 2020-04-28 15:20 | PM.IMPN ---
Progress Note: A&P Assessment and Plan (1) COVID-19: Code(s): U07.1 - COVID-19 Status: Acute Assessment and Plan: With questionable diagnosis of PNA on CXR. With acute respiratory failure with hypoxia. He has been started on Dexamethasone from ED. He is not a candidate of Remdesivir given his poor renal function. Bacterial pneumonia coinfection felt to be less likely at this time. Symptomatically, patient feels better, still requiring 4L O2 Continue Decadron day #5 Continue supportive care with Tylenol for fevers, Robitussin for cough, and levalbuterol for SOB. Will do vit d, vit c, and zinc sulfate Wean O2 as tolerated Will do home O2 eval when close for discharge Continue IS/Cornet Monitor closely (2) Acute kidney injury superimposed on chronic kidney disease: Code(s): N17.9 - Acute kidney failure, unspecified; N18.9 - Chronic kidney disease, unspecified Status: Acute Assessment and Plan: Possibly due to poor perfusion from soft BP/hypotension. Cr now 3.10 today, improvement. Some BP/CHF meds have been held. Home metolazone has been held since admission given soft BP. He follows Dr. Matthew as an outpatient. Nephrology has been consulted and appreciate input Entresto and Coreg have been held per Cardiology; Lasix continues Await further rec from Nephrology Monitor daily (3) Elevated troponin: Code(s): R77.8 - Other specified abnormalities of plasma proteins Status: Acute Assessment and Plan: Troponins mildly elevated but relatively flat. Possibly secondary to COVID disease vs systolic CHF vs poor renal function or combination thereof. Patient denies chest pain/palpitations. HCG (Cardiology) consulted and appreciate recommendations. Echo shows EF of 25-30%. Continue conservative medical management at this time per Cardiology recommendations Await further recommendations from Cardiology Monitor (4) Congestive heart failure: Code(s): I50.9 - Heart failure, unspecified Status: Acute Assessment and Plan: Chronic systolic CHF. Echo shows EF of 25-30% with grade 3/4 diastolic dysfunction. Cardiology following and appreciate input Will defer further care to Cardiology service Monitor volume status (5) Type 2 diabetes mellitus with hyperglycemia: Qualifiers: Diabetes mellitus equipment operator intermodal yard insulin use: with [facility] use Qualified Code(s): E11.65 - Type 2 diabetes mellitus with hyperglycemia; Z79.4 - [facility] (current) use of insulin Code(s): E11.65 - Type 2 diabetes mellitus with hyperglycemia Status: Acute Assessment and Plan: The patient has chronically uncontrolled diabetes. He has insulin pump in place. A1c 8.6 this stay. He has complications including diabetic retinopathy, nephropathy and neuropathy. BGL 50s-100s today. Continue insulin pump; 3 units between midnight and 5:30 a.m. 4 units between 5:30 a.m. and 10:00 p.m. and 4.25 units between 10:00 p.m. and midnight. He uses 1 unit of insulin for every 2 carbs in his insulin to carb ratio. He takes 1 unit for every 10 mg/dL of glucose over 150 Accuchecks ACHS, hypoglycemia protocol, diabetic/HH diet Trulicity has been held as this is NF (6) Sleep apnea: Qualifiers: Sleep apnea type: obstructive Qualified Code(s): G47.33 - Obstructive sleep apnea (adult) (pediatric) Code(s): G47.30 - Sleep apnea, unspecified Status: Acute Assessment and Plan: It is felt that patient would benefit from his home CPAP, given that he is COVID+. Continue CPAP Monitor (7) Hypertension: Code(s): I10 - Essential (primary) hypertension Status: Acute Assessment and Plan: BP
[2020-04-28] MEDS: FUROSEMIDE 20 MG TABLET 60 MG PO (16:45)
[2020-04-28] MEDS: RIVAROXABAN 15 MG TABLET PO (17:01)
[2020-04-28 17:55] LABS: Glucose Point of Care 181 (65-105)
--- NOTE | 2020-04-28 18:23 | PC.NURSE ---
Pt to be transferred to IMU. Attempted to call report at 5:30, however room was not clean yet, due to a pt just moving from that room. Called at 6:00 and nurse unable to take report at that time. Pt currently stable on 15L high flow nasal canula, and 15L non-rebreather face mask. Will wait to give report and transfer pt, until we hear back from IMU.
[2020-04-28 20:03] LABS: Creatinine Urine 125.4 mg/dL; Total Protein Urine Random 21 mg/dL; Ur Ttl Prot Creatinine Ratio 0.17 mg/mg (0-0.20)
[2020-04-28 20:04] LABS: Sodium Urine Random 13 meq/L
[2020-04-28 20:45] LABS: Glucose Point of Care 230 (65-105)
--- NOTE | 2020-04-28 23:17 | PC.NURSE ---
04/28/20 at 1850. Received patient from 330-1 into 232-1. Patient placed on the monitor with continuous pulse ox. VSS, o2 sat 98% on 15L high flow with 15L non rebreather.
[2020-04-29] VITALS (21 sets, daily range): BP systolic 111–124; BP diastolic 47–106; PULSE 70–72; RESP 18–30; TEMP 36.3–37.1; O2SAT 26–100
[2020-04-29] MEDS: SODIUM CHLORIDE NASAL GEL 14.1 GM 1 APPLIC NASAL (01:37)
[2020-04-29] MEDS: LEVOTHYROXINE SODIUM 150 MCG TABLET PO (06:08)
[2020-04-29 06:14] LABS: Hematocrit 28.1 % (42.0-52.0); Hemoglobin 9.9 g/dL (14.0-18.0); Immature Granulocyte Absolute 0.04 K/mm3 (0.00-0.031); Immature Granulocyte Percent A 0.6 % (0-0.5); Lymphocytes Absolute Auto 0.13 K/mm3 (0.9-3.2); Mean Corpuscular HGB Conc 35.2 g/dl (32-36); Mean Corpuscular Hemoglobin 29.6 pg (26-34); Mean Corpuscular Volume 83.9 fl (80-100); Mean Platelet Volume 9.9 fl (7.4-10.4); Monocytes Absolute Auto 0.5 K/mm3 (0.1-0.6); Monocytes Percent Auto 7.1 % (2.6-8.5); Neutrophils Absolute Auto 5.9 K/mm3 (1.3-6.7); Neutrophils Percent Auto 90.3 % (45.5-73.1); Platelet Count Result 191 k/mm3 (150-375); Red Blood Count 3.35 M/mm3 (4.6-6.20); Red Cell Distribution Width 14.9 % (11.5-14.5); White Blood Count 6.5 K/mm3 (4.5-10.0)
[2020-04-29 06:50] LABS: Alanine Aminotransferase 44 U/L (4-50); Albumin Level 3.7 g/dL (3.5-5.1); Alkaline Phosphatase 60 U/L (38-126); Anion Gap 12 mmol/L (8-16); Aspartate Amino Transferase 80 U/L (17-59); Bilirubin,Total 0.8 mg/dL (0.2-1.3); Calcium 7.9 mg/dL (8.4-10.2); Carbon Dioxide 19 mmol/L (22-30); Chloride 98 mmol/L (98-107); Estimated CRCL calculation 30 ml/min; Estimated Glomerular Filt Rate 25; Glucose 114 mg/dL (75-110); Magnesium 2.2 mg/dL (1.6-2.3); Potassium 4.3 mmol/L (3.4-5.0); Sodium 129 mmol/L (137-145)
[2020-04-29 06:54] LABS: Acanthocytes 1+ (NORMAL); Crenated RBC 1+ (NORMAL); Ovalocytes 1+ (NORMAL); Platelet Estimate Adequate (Adequate)
[2020-04-29 06:55] LABS: Blood Urea Nitrogen 131 mg/dL (9-20); Tear Drop Cells 1+ (NORMAL)
[2020-04-29 08:24] LABS: Glucose Point of Care 109 (65-105)
[2020-04-29] MEDS: ZINC SULFATE 220 MG CAPSULE PO (08:25)
[2020-04-29] MEDS: CLOPIDOGREL BISULFATE 75 MG TABLET PO (08:25)
[2020-04-29] MEDS: ASCORBIC ACID 500 MG TABLET PO (08:25)
[2020-04-29] MEDS: DEXAMETHASONE 2 MG TABLET 6 MG PO (08:26)
[2020-04-29] MEDS: ATORVASTATIN 40 MG TABLET 80 MG PO (08:27)
[2020-04-29] MEDS: FUROSEMIDE 20 MG TABLET 60 MG PO (08:27)
[2020-04-29] MEDS: POTASSIUM CHLORIDE 20 MEQ TABLET.ER PO (08:27)
[2020-04-29] MEDS: CHOLECALCIFEROL 1,000 UNITS TABLET 1000 UNITS PO (08:28)
[2020-04-29 09:01] LABS: Alveolar/Arterial O2 Gradient 613.1 mmHg; Base Excess ABG -3.3 mEq/l (+/-2.0); Fractional Inspired Oxygen 100 %; HCO3 ABG 19.1 mEq/l (22.0-26.0); Oxygen Content ABG 17.2 %vol (16.0-22.0); Oxygen Saturation ABG 95.6 % (95.0-100.0); Oxyhemoglobin 93.3 % THb (90.0-100.0); PCO2 ABG 27.4 mmHg (35.0-45.0); PO2 ABG 72.5 mmHg (80.0-100.0); PO2 FiO2 Ratio Arterial Blood 0.73 %; Total Hemoglobin 13.1 g/dL (12.0-18.0); pH ABG 7.462 (7.350-7.450)
[2020-04-29 09:02] LABS: Device HIGH FLOW THERAPY; Modified Allen's Test Pass; Site Drawn LEFT RADIAL
--- NOTE | 2020-04-29 09:16 | PM.IMPN ---
Progress Note: A&P Assessment and Plan (1) COVID-19: Code(s): U07.1 - COVID-19 Status: Acute Assessment and Plan: With PNA on CXR from 04/28 and acute respiratory failure with hypoxia. He has been started on Dexamethasone from ED. He is not a candidate of Remdesivir given his poor renal function. Bacterial pneumonia coinfection felt to be less likely at this time. Symptomatically, patient feels worse today, requiring 35L [place] at time of visit. Appears to be in mild-mod resp distress. ABG shows pH 7.462, pCO2 27.4, pO2 72.5 (improvement), HCO3 19.2. He confirms Full Code status today. Discussed with family, Bee and Mirta (with permission); they are in agreement with plan Will discuss with manager user interface; given decline in respiratory status again overnight likely transition him to ICU status if manager user interface in agreement Continue Decadron day #6 Continue supportive care with Tylenol for fevers, Robitussin for cough, and levalbuterol for SOB. Will do vit d, vit c, and zinc sulfate Wean O2 as tolerated Continue IS/Cornet Monitor closely (2) Acute kidney injury superimposed on chronic kidney disease: Code(s): N17.9 - Acute kidney failure, unspecified; N18.9 - Chronic kidney disease, unspecified Status: Acute Assessment and Plan: Possibly due to poor perfusion from soft BP/hypotension earlier in stay. Cr now 2.60 today, improvement. Some BP/CHF meds have been held. Home metolazone has been held since admission given soft BP. He follows Dr. Matthew as an outpatient. Nephrology has been consulted and appreciate input Entresto and Coreg have been held per Cardiology; Liana continues Await further rec from Nephrology Monitor daily (3) Elevated troponin: Code(s): R77.8 - Other specified abnormalities of plasma proteins Status: Acute Assessment and Plan: Troponins mildly elevated but relatively flat. Possibly secondary to COVID disease vs systolic CHF vs poor renal function or combination thereof. Patient denies chest pain/palpitations. HCG (Cardiology) consulted and appreciate recommendations. Echo shows EF of 25-30%. Continue conservative medical management at this time per Cardiology recommendations Await further recommendations from Cardiology Monitor (4) Congestive heart failure: Code(s): I50.9 - Heart failure, unspecified Status: Chronic Assessment and Plan: Chronic systolic CHF. Echo shows EF of 25-30% with grade 3/4 diastolic dysfunction. Cardiology following and appreciate input Will defer further care to Cardiology service Monitor volume status (5) Type 2 diabetes mellitus with hyperglycemia: Qualifiers: Diabetes mellitus [facility] insulin use: with [facility] use Qualified Code(s): E11.65 - Type 2 diabetes mellitus with hyperglycemia; Z79.4 - [facility] (current) use of insulin Code(s): E11.65 - Type 2 diabetes mellitus with hyperglycemia Status: Chronic Assessment and Plan: The patient has chronically uncontrolled diabetes. He has insulin pump in place. A1c 8.6 this stay. He has complications including diabetic retinopathy, nephropathy and neuropathy. BGL 50s-100s today. Continue insulin pump; 3 units between midnight and 5:30 a.m. 4 units between 5:30 a.m. and 10:00 p.m. and 4.25 units between 10:00 p.m. and midnight. He uses 1 unit of insulin for every 2 carbs in his insulin to carb ratio. He takes 1 unit for every 10 mg/dL of glucose over 150 Accuchecks ACHS, hypoglycemia protocol, diabetic/HH diet Trulicity has been held as this is NF (6) Sleep apnea: Qualifiers: Sleep apnea type: obstructive Qualified Code(s): G47.33 - Obstructive sleep apnea (adult) (pediatric) Code(s): G47.30 - Sleep
[2020-04-29] MEDS: FUROSEMIDE INJ 100 MG/10 ML VIAL 80 MG IV PUSH ×2 (11:05→22:21)
[2020-04-29 11:44] LABS: Glucose Point of Care 112 (65-105)
--- NOTE | 2020-04-29 12:29 | PCPTNOTE ---
Patient experienced a decline in status and was moved to IMU...check with PA and was told patient was not able to be seen, experiencing ARF...patient was put on HOLD
--- NOTE | 2020-04-29 12:40 | PM.PNCARD ---
Progress Note: A&P Assessment and Plan (1) Elevated troponin: Code(s): R77.8 - Other specified abnormalities of plasma proteins Status: Acute Assessment and Plan: 70-year-old male with coronary artery disease; history of [place] status post PCI/stenting of LAD at outside hospital; ischemic cardiomyopathy/CHF with reduced ejection fraction, atrial fibrillation on chronic anticoagulation with lower dose rivaroxaban, CKD. Patient admitted with fever, dyspnea and and weakness. Found to have COVID-19 infection. Patient has minimal troponin elevation which is essentially flat, and is non ACS related in the setting of congestive heart failure, CKD and infection. As tolerated, continue Supportive care, continue current medical treatment for patient's CAD including clopidogrel and statin. (2) Acute respiratory failure with hypoxia: Code(s): J96.01 - Acute respiratory failure with hypoxia Status: Acute Assessment and Plan: Chest x-ray with severe progression bilateral infiltrates consistent with COVID-19 pneumonia. Worsening hypoxia requiring additional levels and noninvasive positive pressure ventilation secondary to impending respiratory failure. Any further change transferred intensive care unit. Patient may require mechanical intubation and ventilatory support. Prone position as tolerated. Appreciate pulmonology involvement and recommendations. Patient is at very high risk for respiratory and cardiovascular complications given severe LV dysfunction and comorbidities with progressive severity of COVID-19 infection. Prognosis very guarded. (3) Congestive heart failure: Code(s): I50.9 - Heart failure, unspecified Status: Chronic Assessment and Plan: Continue to hold carvedilol and Entresto. BP and creatinine improved although BUN continues to rise. Goal with holding his medications to increase blood pressure and renal perfusion. Once renal function stabilizes, plan to resume Entresto and carvedilol. -remains on Lasix 60 mg p.o. daily. Given additional IV 80 mg x 1 this morning by pulmonology due to worsening respiratory failure. Repeat chest x-ray. Anticipate will require IV diuresis as appropriate depending on respiratory status. (4) COVID-19: Code(s): U07.1 - COVID-19 Status: Acute Assessment and Plan: Unfortunately, patient is deteriorating from respiratory perspective with severe underlying renal insufficiency. Management as per primary team. Concern condition grave requiring intubation in near future. (5) Acute kidney injury superimposed on chronic kidney disease: Code(s): N17.9 - Acute kidney failure, unspecified; N18.9 - Chronic kidney disease, unspecified Status: Acute Assessment and Plan: Continue to hold Entresto and carvedilol given hypotension. Creatinine improving although BUN markedly elevated despite improvement in blood pressure. Subjective Date/time seen: Date of service: 04/29/20 12:40 Interval history: Patient is a 70 year old male with a past medical history of obstructive sleep apnea, CHF, coronary artery disease, diabetes mellitus and chronic kidney disease stage 3 who is seen in follow up for COVID pneumonia and elevated troponins. Denies chest pain. Feels better on BiPAP currently. Began to feel more short of breath overnight and then this morning much more so. Discussions regarding transfer to ICU. Pulmonology root 80 mg Lasix IV x1 this morning. Review of Systems Review of Systems: All systems reviewed & are unremarkable except as noted in HPI and below Constitutional: Constitutional: Reports as per HPI, Denies excessive sweating, Reports fatigue, Denies headache(s), Reports lethargy and Reports weakness Eyes: Eyes: Reports as per HPI and Denies blurry vision ENT: Reports as per HPI, Reports Normal hearing present, Denies headache(s) and Denies neck pain Cardiovascular: Cardiovascular: Reports as per HPI, Pavel
--- NOTE | 2020-04-29 16:25 | P.PNNP_ITS ---
Progress Note: A&P Assessment and Plan (1) CRYS (acute kidney injury): Code(s): N17.9 - Acute kidney failure, unspecified Status: Acute Assessment and Plan: * creatinine a bit better today * suspect acute insult due to relative hypotension although COVID-19 infection may be playing a role as well * renal ultrasound without any acute changes * urine electrolytes reflects pre-renal azotemia * BP medication adjustments noted * hopefully with a higher BP, his renal function should continue to improve * follow repeat labs and UOP (2) Stage 3b chronic kidney disease: Code(s): N18.32 - Chronic kidney disease, stage 3b Status: Chronic Assessment and Plan: * from review of office records, baseline creatinine runs around 1.6 - 2.1mg/dl in the last 2 years * due to HTN, DM, age and possible SHARAD * outpatient evaluation (serologies, urine sediment analysis, immunofixat ion...etc) were negative (3) COVID-19 virus infection: Code(s): U07.1 - COVID-19 Status: Acute Assessment and Plan: * as noted by positive test * on decadron * remdesivir contraindicated due to CKD * supplemental oxygen and BiPAP * continue supportive therapy (4) Hypertension: Code(s): I10 - Essential (primary) hypertension Status: Acute Assessment and Plan: * issues with relative hypotension noted in the last few days * several BP medications on hold a this time * follow trend of hemodynamics (5) Congestive heart failure: Code(s): I50.9 - Heart failure, unspecified Status: Chronic Assessment and Plan: * appears compensated at this time * however, several medications on hold now due to low BP and CRYS * Cardiology following (6) Sleep apnea: Qualifiers: Sleep apnea type: obstructive Qualified Code(s): G47.33 - Obstructive sleep apnea (adult) (pediatric) Code(s): G47.30 - Sleep apnea, unspecified Status: Chronic Assessment and Plan: * continuie CPAP (7) Type 2 diabetes mellitus with hyperglycemia: Qualifiers: Diabetes mellitus longwall shearer operator insulin use: with longwall shearer operator use Qualified Code(s): E11.65 - Type 2 diabetes mellitus with hyperglycemia; Z79.4 - [facility] (current) use of insulin Code(s): E11.65 - Type 2 diabetes mellitus with hyperglycemia Status: Chronic Assessment and Plan: * follow accuchecks * glycemic control Will continue to follow. Subjective Date/time seen: 04/29/20 16:25 Decline in respiratory status noted yesterday afternoon as well this AM -- doing better on BiPAP and given IV diuretics as well; respiratory status tenuous at this time. Exam Narrative: Exam Narrative: General: Elderly male with BiPAP in place Heart: normal S1 and S2; no rub Lungs: coarse with a few crackles at bases Abdomen: soft, nontender, nondistended, positive bowel sounds Extremities: no cyanosis or clubbing; chronic edema noted Skin: warm and intact Objective Data Vital Signs Vital Signs: Vital Signs Temp Pulse Resp BP Pulse Ox 04/29/20 16:00 36.4 C 70 22 H 114/63 99 04/29/20 15:52 72 22 H 100 04/29/20 14:00 70 04/29/20 12:00 36.6 C 70 22 H 124/106 H 98 04/29/20 10:00 70 04/29/20 09:40 70 18 100 04/29/20 09:13 70 30 H 26 L 04/29/20 09:12 70 26 H 04/29/20 08:00 36.3 C L 70 24 H 123/5
--- NOTE | 2020-04-29 16:25 | PM.PNNEP ---
Progress Note: A&P Assessment and Plan (1) CRYS (acute kidney injury): Code(s): N17.9 - Acute kidney failure, unspecified Status: Acute Assessment and Plan: creatinine a bit better today suspect acute insult due to relative hypotension although COVID-19 infection may be playing a role as well renal ultrasound without any acute changes urine electrolytes reflects pre-renal azotemia BP medication adjustments noted hopefully with a higher BP, his renal function should continue to improve follow repeat labs and UOP (2) Stage 3b chronic kidney disease: Code(s): N18.32 - Chronic kidney disease, stage 3b Status: Chronic Assessment and Plan: from review of office records, baseline creatinine runs around 1.6 - 2.1mg/dl in the last 2 years due to HTN, DM, age and possible SHARAD outpatient evaluation (serologies, urine sediment analysis, immunofixation...etc) were negative (3) COVID-19 virus infection: Code(s): U07.1 - COVID-19 Status: Acute Assessment and Plan: as noted by positive test on decadron remdesivir contraindicated due to CKD supplemental oxygen and BiPAP continue supportive therapy (4) Hypertension: Code(s): I10 - Essential (primary) hypertension Status: Acute Assessment and Plan: issues with relative hypotension noted in the last few days several BP medications on hold a this time follow trend of hemodynamics (5) Congestive heart failure: Code(s): I50.9 - Heart failure, unspecified Status: Chronic Assessment and Plan: appears compensated at this time however, several medications on hold now due to low BP and CRYS Cardiology following (6) Sleep apnea: Qualifiers: Sleep apnea type: obstructive Qualified Code(s): G47.33 - Obstructive sleep apnea (adult) (pediatric) Code(s): G47.30 - Sleep apnea, unspecified Status: Chronic Assessment and Plan: continuie CPAP (7) Type 2 diabetes mellitus with hyperglycemia: Qualifiers: Diabetes mellitus residential insulin use: with supervisor tile and mottle use Qualified Code(s): E11.65 - Type 2 diabetes mellitus with hyperglycemia; Z79.4 - mate chief (current) use of insulin Code(s): E11.65 - Type 2 diabetes mellitus with hyperglycemia Status: Chronic Assessment and Plan: follow accuchecks glycemic control Will continue to follow. Subjective Date/time seen: 04/29/20 16:25 Decline in respiratory status noted yesterday afternoon as well this AM -- doing better on BiPAP and given IV diuretics as well; respiratory status tenuous at this time. Exam Narrative: Exam Narrative: General: Elderly male with BiPAP in place Heart: normal S1 and S2; no rub Lungs: coarse with a few crackles at bases Abdomen: soft, nontender, nondistended, positive bowel sounds Extremities: no cyanosis or clubbing; chronic edema noted Skin: warm and intact Objective Data Vital Signs Vital Signs: Vital Signs Temp Pulse Resp BP Pulse Ox 04/29/20 16:00 36.4 C 70 22 H 114/63 99 04/29/20 15:52 72 22 H 100 04/29/20 14:00 70 04/29/20 12:00 36.6 C 70 22 H 124/106 H 98 04/29/20 10:00 70 04/29/20 09:40 70 18 100 04/29/20 09:13 70 30 H 26 L 04/29/20 09:12 70 26 H 04/29/20 08:00 36.3 C L 70 24 H 123/59 L 96 04/29/20 06:00 70 04/29/20 04:00 36.7 C 70 20 111/65 91 04/29/20 02:31 72 28 H 100 04/29/20 02:09 71 28 H 04/29/20 02:00 70 04/29/20 00:00 37.1 C 70 22 H 122/66 94 04/28/20 20:50 71 30 H 92 04/28/20 20:00 36.7 C 70 30 H 131/64 91 Intake/Output Intake/Output: Intake & Output 04/26/20 04/27/20 04/28/20 04/29/20 23:59 23:59 23:59 23:59 Intake Total 1870 1120 1430 1200 Output Total 1000 Balance 1870 1120 1430 200 Meds/Results Medications: Active Medications Generic Name Dose Route Start Last Admin Trade Nam
[2020-04-29 17:44] LABS: Glucose Point of Care 117 (65-105)
[2020-04-29] MEDS: RIVAROXABAN 15 MG TABLET PO (18:11)
--- NOTE | 2020-04-29 19:26 | WPDCNINT ---
Assessment and Plan Assessment and plan (1) Acute respiratory failure with hypoxia: Code(s): J96.01 - Acute respiratory failure with hypoxia Status: Acute Assessment and Plan: Due to COVID-19 pneumonia and possible CHF - Lasix 80 mg IV bid, place hernandez catheter for accurate I/Os - he's agreed to try BIPAP again 18/, RR 18 and 100% - Morphine 2 mg IV Q4h PRN RR > 30 or dyspnea - may need transfer to ICU if he decompensates or may need dobutamine drip to optimize organ perfusion. (2) Congestive heart failure: Qualifiers: Heart failure type: systolic Heart failure chronicity: acute on chronic Qualified Code(s): I50.23 - Acute on chronic systolic (congestive) heart failure Code(s): I50.9 - Heart failure, unspecified Status: Chronic Assessment and Plan: EF is 25-30% (3) COVID-19: Code(s): U07.1 - COVID-19 Status: Acute Assessment and Plan: Cotinue Dexamethasone 6 mg IV daily for a total of 10 days Already on full anticoagulation due to history of Afib. consider switching to heparin drip in light of CrCl. Cosmetic Sales Advisor Consult Note Consult date: 04/29/20 Time Seen: 11:00 HPI: Addy Fox is a 70 year old male obese male with DM, systolic CHF presents with acute hypoxemic respiratory failure due to COVID-19 and acute on chronic renal insufficiency. I was consulted due to worsening hypoxia. CXR shows worsening bilateral infiltrates, mostly airspace disease. He denies sputum production, LE edema has been chronic and unchanged. He could not tolerated BIPAP earlier and is currently on `100% non rebreather. ABG showed no ventilation issues but did show significant hypoxemia. He was not a candidate for Remdesivir due to renal function but did receive dexamethasone upon admission. Review of Systems Review of Systems: All systems reviewed & are unremarkable except as noted in HPI and below PMFSH Past Medical History Medical History (Updated 04/29/20 @ 19:44 by Mo Richmond MD) Atrial fibrillation Barretts esophagus Basal cell carcinoma (BCC) of antihelix of left ear Status post resection Cancer Basal cell left ear Chronic kidney disease, stage III (moderate) Congestive heart failure Echocardiogram September 2017: Mild concentric LVH, mild left ventricular enlargement, moderate global left ventricular systolic dysfunction with EF of 35%, akinetic apical segment mid inferior segment and apical inferior segment, dyskinetic apical septum segment and anterior septum segment, severe left atrial enlargement, mild right atrial enlargement, aortic valve stenosis with valve area of 2.1 centimeters squared severity of stenosis may be underestimated due to low cardiac output, moderate pulmonary hypertension with RVSP of 55 Coronary artery disease With chronic troponin elevation Diabetes GERD (gastroesophageal reflux disease) Heart murmur Hypercholesterolemia Hypertension Hypothyroidism Insulin pump in place Ischemic cardiomyopathy Kidney stones 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 This occurred in [facility] [place]. History of appendectomy History of bilateral carpal tunnel release History of coronary artery stent placement Status post biventricular pacemaker Due to sick sinus syndrome and atrial fibrillation Family History Family History (Reviewed 04/25/20 @ 11:22 by Eduardo
[2020-04-29 20:03] LABS: Glucose Point of Care 123 (65-105)
[2020-04-29] MEDS: BUDESONIDE RESPULE NEB 0.5 MG/2 ML AMP 1 MG INHALATION (22:02)
[2020-04-29] MEDS: SALINE 0.65% NAS SOLN 44 ML BTL 1 SPRAY NASAL (22:22)
[2020-04-29 23:36] LABS: Glucose Point of Care 81 (65-105)
[2020-04-30] VITALS (7 sets, daily range): BP systolic 120–124; BP diastolic 48–55; PULSE 70–77; RESP 22–27; TEMP 36.6; O2SAT 96–100
--- NOTE | 2020-04-30 00:46 | PC.NURSE ---
04/29/20 at 2330. POC 81. Patient has been NPO all day. Discussed the need to turn off the insulin pump. Patient is agreeable and did turn off his insulin pump.
[2020-04-30 03:55] LABS: Glucose Point of Care 83 (65-105)
[2020-04-30 05:22] LABS: Alveolar/Arterial O2 Gradient 545.2 mmHg; Base Excess ABG -3.3 mEq/l (+/-2.0); Carboxyhemoglobin 0.1 % THb (0-2.0); Device NON-INVASIVE VENT; Fractional Inspired Oxygen 100 %; HCO3 ABG 20.6 mEq/l (22.0-26.0); Methemoglobin ABG 0.4 %THb (0-1.5); Modified Allen's Test Pass; Oxygen Content ABG 13.4 %vol (16.0-22.0); Oxygen Saturation ABG 98.8 % (95.0-100.0); Oxyhemoglobin 97.2 % THb (90.0-100.0); PCO2 ABG 32.7 mmHg (35.0-45.0); PO2 ABG 135.1 mmHg (80.0-100.0); PO2 FiO2 Ratio Arterial Blood 1.35 %; Reduced Hemoglobin 2.3 %THb (0-5.0); Site Drawn LEFT RADIAL; Total Hemoglobin 9.6 g/dL (12.0-18.0); pH ABG 7.417 (7.350-7.450)
[2020-04-30 05:23] LABS: Non-Invasive Expiratory Pressure 6 CMH2O; Non-Invasive Inspiratory Pressure 18 CMH2O; Non-Invasive Vent Rate 18 /MIN
[2020-04-30] MEDS: LEVOTHYROXINE SODIUM 150 MCG TABLET PO (05:45)
[2020-04-30 07:15] LABS: Basophils Percent Auto 0.2 % (0.2-1.2); Hematocrit 30.6 % (42.0-52.0); Hemoglobin 10.3 g/dL (14.0-18.0); Immature Granulocyte Absolute 0.05 K/mm3 (0.00-0.031); Immature Granulocyte Percent A 0.8 % (0-0.5); Lymphocytes Absolute Auto 0.09 K/mm3 (0.9-3.2); Lymphocytes Percent Auto 1.4 % (18.3-44.2); Mean Corpuscular HGB Conc 33.7 g/dl (32-36); Mean Corpuscular Volume 86.2 fl (80-100); Mean Platelet Volume 9.8 fl (7.4-10.4); Monocytes Absolute Auto 0.4 K/mm3 (0.1-0.6); Monocytes Percent Auto 6.1 % (2.6-8.5); Neutrophils Absolute Auto 5.8 K/mm3 (1.3-6.7); Neutrophils Percent Auto 91.5 % (45.5-73.1); Platelet Count Result 185 k/mm3 (150-375); Red Blood Count 3.55 M/mm3 (4.6-6.20); Red Cell Distribution Width 14.8 % (11.5-14.5); White Blood Count 6.4 K/mm3 (4.5-10.0)
[2020-04-30 07:39] LABS: Alanine Aminotransferase 43 U/L (4-50); Albumin Level 3.7 g/dL (3.5-5.1); Alkaline Phosphatase 77 U/L (38-126); Anion Gap 7 mmol/L (8-16); Aspartate Amino Transferase 81 U/L (17-59); Blood Urea Nitrogen 138 mg/dL (9-20); Calcium 7.8 mg/dL (8.4-10.2); Carbon Dioxide 26 mmol/L (22-30); Chloride 99 mmol/L (98-107); Estimated CRCL calculation 32 ml/min; Estimated Glomerular Filt Rate 26; Glucose 121 mg/dL (75-110); Lactate Dehydrogenase 3110 U/L (313-618); Magnesium 2.4 mg/dL (1.6-2.3); Potassium 4.3 mmol/L (3.4-5.0); Sodium 132 mmol/L (137-145)
[2020-04-30 07:40] LABS: Acanthocytes 1+ (NORMAL); Ovalocytes 1+ (NORMAL); Platelet Estimate Adequate (Adequate)
[2020-04-30 07:41] LABS: CRP 16.1 mg/dL (<1.0); Crenated RBC 1+ (NORMAL)
[2020-04-30 08:02] LABS: Glucose Point of Care 134 (65-105)
--- NOTE | 2020-04-30 09:00 | PM.DDS ---
Discharge Sum: Prov Provider Primary care physician: [facility],JULIO CESAR Admitting provider: Cece Cortes DO Consults: 04/24/20 Consult to Physician Routine Comment: [place] 1520[place] [place] Consulting Provider: Ky Hernandez forge helper/MD group to consult: David Reason for consultation: elevated troponins, dyspnea, Possible COVID, Hx CAD, systolic CHF, Has provider been notified: Yes 04/27/20 07:47 Consult to Physician Routine Comment: [place] 0940[place] [place] Consulting Provider: Jhonny Walker forge helper/MD group to consult: Nephrology Reason for consultation: known CKDIII, acute on chronic, worsening BUN Has provider been notified: Yes 04/29/20 Consult to Physician Routine Comment: md is aware of the consult Consulting Provider: Mo Richmond forge helper/MD group to consult: intensivists Reason for consultation: acute respiratory failure Has provider been notified: Yes Discharge Sum: Diag Contributing Factors (1) COVID-19: (2) Acute respiratory failure with hypoxia: (3) Cardiac arrest with pulseless electrical activity: (4) Acute kidney injury superimposed on chronic kidney disease: (5) Elevated troponin: (6) Congestive heart failure: (7) Type 2 diabetes mellitus with hyperglycemia: (8) Sleep apnea: (9) Hypertension: Discharge Sum: Summary Date and Time Date of admission: 04/23/20 22:09 Date of : 04/30/20 Time of : 08:37 Summary Details: Date of arrival: 04/23/20 Date of : 04/30/20 at 08:37 Patient a 70 year old male with a past medical history of obstructive sleep apnea, CHF, coronary artery disease, diabetes mellitus and chronic kidney disease stage 3 who presented to the ER on 04/23 from home for fever, weakness and shortness of breath. He had known COVID exposure and thus was swabbed for COVID (positive) and isolated. He was initially maintaining adequate O2 sats on RA, however, was in apparent respiratory distress and was started on Decadron in ED; he was not a candidate for Remdesivir given his renal function and was not initially requiring O2 sats. CXR was questionable for underlying pneumonia. He had mildly elevated, troponin level. EKG felt to be unchanged from prior EKGs. Patient admitted under this setting of COVID infection and elevated troponin. Please see H&P for further details. Patient was admitted to the hospitalist service for further management/treatment. Patient continued on Decadron during stay. As above, his covid swab was positive and was given supportive care with IS/Cornet CPT, Xopenex inhaler, Tylenol, mucinex. His troponin levels were trended and remained relatively flat. Cardiology (Dr. Hernandez) was consulted and Echo was obtained which showed EF of 25-30%. Early in stay, patient found to be hypotensive, but asymptomatic; as a result, he appeared to have acute on chronic renal disease. Some of his BP/CHF medications were held per Cardiology with improvement in his BP and improvement in his renal function. Dr. Walker (Nephrology) consulted for management of CKD. Unfortunately, patient's respiratory declined later in stay and eventually required an increasing about of oxygen via NC and NR mask until he was placed on Airvo and moved to IMU. On 04/29, Salesperson Stereo Equipment was consulted for further input on respiratory status. Patient initially intolerant to BiPAP, but was again agreeable and wore mask overnight on 04/29. On 04/30, patient had essentially normal VS, was satting 98% on BiPAP and ABG was showing improvement in values; minimal to no electrolyte abnormalities on morning labs. Salesperson Stereo Equipment was called to room as patient was found to be unresponsive with faint but present pulse and hypoxia. While preparing for intubation, he lost pulse at 8:15 thus CPR and ACLS protocol was initiated; 5-6 cycles were given. He was intubated per Salesperson Stereo Equipment. Unfortunately, despite efforts, patient . Time of was call
--- NOTE | 2020-04-30 09:08 | PDCODEBLUE ---
Code Blue Note Code Blue Note Time Arrived at Code Blue: 8:10 am Initial Rhythm on Arrival: PEA Airway Management: No airway on arrival Chest Compressions: Initiated upon arrival Result of Code Blue: Pt Code Blue Summary: Was called to patients room as he was unresponsive with with faint but present pulse but hypoxic. This a 70 y/o obese male with CHF, DM, HTN admitted with COVID-19 and acute hypoxemic respiratory failure and was on BIPAP. He was un responsive and BVM was used for ventilation and oxygenation as we were preparing for intubation he lost a pulse at 8:15 am and CPR with ACLS protocol was initiated. Aproximately 5- 6 cycles were give. The patient was difficult to intubate but a size 7.0 ET tube was finally placed using a glidoscope with good CO2 color change. Despite all our efforts the patient at 8:35 am after 20 minutes of ACLS. The patients family was informed by the primary care time.
--- NOTE | 2020-04-30 09:14 | PC.NURSE ---
At approximately 0812 patient Addy Fox pressed his call light. Due to patient being on continuous BIPAP at this time his request was unintelligible so I began to don my PPE prior to entering patient's COVID isolation room. Upon entry I noticed the patient to be slouched in the bed and he had pulled off his pulse oximeter by this time. I began to shout the patient's name with no response, checked for a pulse and noted it to be weak. I then performed a sternal rub with no response from the patient.I immediately called Anthony Barnett player piano technician to notify him and asked him to see if (Director Religious Education) had arrived to work yet, while I notified Respiratory Therapy. Within approximately a minute of Anthony Barnett and RT arriving patient went PEA. arrived at this time and we began CPR, intubation, Epinephrine, and Sodium Bicarb protocols. Patient's resuscitation attempt was unsuccessful and called time of at 0837.
--- NOTE | 2020-04-30 09:15 | WPDINTPN ---
Progress Note: A&P Assessment and Plan (1) Acute respiratory failure with hypoxia: Code(s): J96.01 - Acute respiratory failure with hypoxia Status: Acute (2) COVID-19 virus infection: Code(s): U07.1 - COVID-19 Status: Acute (3) Congestive heart failure: Qualifiers: Heart failure type: systolic Heart failure chronicity: acute on chronic Qualified Code(s): I50.23 - Acute on chronic systolic (congestive) heart failure Code(s): I50.9 - Heart failure, unspecified Status: Chronic (4) Cardiac arrest with pulseless electrical activity: Code(s): I46.9 - Cardiac arrest, cause unspecified Status: Acute Assessment and Plan: Likely cardiac cause percipitated by COVID-19 infection in the setting of systolic heart failure. Additional Plan Code Status - Full Code. Total Critical Care Time - 32 minutes Due to a high probability of clinically significant, life threatening deterioration, the patient required my highest level of preparedness to intervene emergently and I personally spent this critical care time directly and personally managing the patient. This critical care time included obtaining a history; examining the patient; pulse oximetry; ordering and review of studies; arranging urgent treatment with development of a management plan; evaluation of patient's response to treatment; frequent reassessment; and discussions with other providers. It was exclusive of separately billable procedures and treating other patients and teaching time. Please see Assessment and Plan section and the rest of the note for further information on patient assessment and treatment Subjective Date/time seen: 04/30/20 09:15 Interval history: The patient had a cardiac arrest this morning and after 20 minutes of CPR and ACLS protocol. He was in PEA and likely was cardiac cause rather than respiratory as his blood gas was improved this morning with no respiratory acidosis, oxyenation was improved. Vitals were normal at 8:00 am with O2 sats of 98%. BMP this morning appear stable with no significant electrolytes impairment. Review of Systems Review of Systems: All systems reviewed & are unremarkable except as noted in HPI and below Exam Narrative: Exam Narrative: unresponsive Const: General: ill appearing Nutritional Appearance: obese HENMT: Head: normocephalic and atraumatic Eyes: General: appearance normal, both eyes and all related structures Neck: Neck: trachea midline and supple Resp: Effort & Inspection: able to speak in complete sentences Auscultation: crackles and diminished lung sounds Cardio: Jugular venous distension: no JVD Rate: regular rate Rhythm: regular rhythm Heart sounds: S1 normal heart sound present and S2 normal heart sound present Skin: General skin exam: no rashes or lesions noted Extrem: General: normal exam except as noted and edema Objective Data Vital Signs Vital Signs: Vital Signs - 24 hr 04/29/20 09:40 04/29/20 10:00 04/29/20 12:00 Temperature 36.6 C Pulse Rate 70 70 70 Respiratory Rate 18 22 H Blood Pressure 124/106 H Pulse Oximetry 100 98 04/29/20 14:00 04/29/20 15:52 04/29/20 16:00 Temperature 36.4 C Pulse Rate 70 72 70 Respiratory Rate 22 H 22 H Blood Pressure 114/63 Pulse Oximetry 100 99 04/29/20 18:00 04/29/20 20:00 04/29/20 21:50 Temperature 36.4 C L Pulse Rate 70 70 70 Respiratory Rate 20 25 H Blood Pressure 117/48 L Pulse Oximetry 96 04/29/20 22:00 04/29/20 22:04 04/29/20 23:48 Temperature 36.4 C L Pulse Rate 70 70 70 Respiratory Rate 25 H 22 H Blood Pressure 122/47 L Pulse Oximetry 100 96 04/30/20 00:00 04/30/20 02:00 04/30/20 02:23 Temperature Pulse Rate 70 70 71 Respiratory Rate 27 H Blood Pressure Pulse Oximetry 96 99 04/30/20 04:00 04/30/20 05:15 04/30/20 06:00 Temperature 36.6 C Pulse Rate 70 70 70 Respiratory Rate 26 H 24 H Blood Pre
[2020-04-30 09:45] LABS: Ferritin > 2000.00 ng/mL (11.1-264)
--- NOTE | 2020-04-30 13:09 | PM.PROC ---
Procedure Note - Detailed Date of procedure: 04/30/20 Pre-op diagnosis: Covid exposure, viral pneumonia, CRYS, hypoxia cardiac arrest Post-op diagnosis: same Procedure performed: intubation Description of procedure: The patient was intubated with size 7.0 ET tube using a glidoscope after a failed attempt of size 8.0 While CPR was undergoing. Surgeon: Mo Richmond MD Drains: No Packing: No Condition: Disposition: floor
[2020-05-03 16:47] LABS: Chloride Rand Ur <20 mmol/L (32-290); Creatinine Random Urine 119 mg/dL (20-320)
== END 2020-04-30 08:37 | disposition expired | DRG 177 ==
LOC: ANHED 22:17 → ANH3MEDSUR 22:33 → ANHIMU 04-30 10:06 → ANH3MEDSUR 05-03 16:11 → ANHIMU 05-03 16:11
PROVIDERS: Emergency Medicine Emergency Medical Services; Internal Medicine Critical Care Medicine; Internal Medicine Nephrology; Physician Assistant; Admitting Provider Internal Medicine; Emergency Provider Emergency Medicine; Visit Provider Physician Assistant
DX: U07.1 COVID-19 (principal); J12.82 Pneumonia due to coronavirus disease 2019; A48.1 Legionnaires' disease; J96.01 Acute respiratory failure with hypoxia; I13.0 Hypertensive heart and chronic kidney disease with heart failure and stage 1 through stage 4 chronic kidney disease, or unspecified chronic kidney disease; I50.22 Chronic systolic (congestive) heart failure; I48.91 Unspecified atrial fibrillation; K21.9 Gastro-esophageal reflux disease without esophagitis; E11.9 Type 2 diabetes mellitus without complications; E11.22 Type 2 diabetes mellitus with diabetic chronic kidney disease; E11.40 Type 2 diabetes mellitus with diabetic neuropathy, unspecified; E11.319 Type 2 diabetes mellitus with unspecified diabetic retinopathy without macular edema; Z79.4 Long term (current) use of insulin; Z96.41 Presence of insulin pump (external) (internal); G47.30 Sleep apnea, unspecified; N18.32 Chronic kidney disease, stage 3b; I25.5 Ischemic cardiomyopathy; E03.9 Hypothyroidism, unspecified; Z95.0 Presence of cardiac pacemaker; E78.00 Pure hypercholesterolemia, unspecified; Z87.891 Personal history of nicotine dependence; I25.10 Atherosclerotic heart disease of native coronary artery without angina pectoris
CPT/HCPCS: 31500; 36415; 36600; 71045; 76775; 80048; 80053; 81050; 82010; 82375; 82436; 82570; 82728; 82805; 82948; 83036; 83050; 83605; 83615; 83690; 83735; 84100; 84156; 84300; 84460; 84484; 85025; 85027; 85610; 85730; 85999; 86140; 87040; 87070; 87205; 87804; 92950; 93005; 93306; 94002; 94640; 94667; 94668; 97110; 97116; 97161; 97165; 97530; 97535; 99285; A9270; C9803; J0131; J0171; J1940; J3475; J7030; J8540; U0003; U0005